=== PATIENT | female | born 1950 | race Caucasian/White ===

== ENCOUNTER → 2016-10-30 | Outpatient (CLI) | payer MEDICARE, OTHER ==
--- NOTE | 2016-10-30 11:28 | MRI ---
EXAM DESCRIPTION: Lumbar Spine w/wo Contrast CLINICAL HISTORY: 66 years, Female, LOW BACK PAIN previous lumbar surgery 10 years ago, injury 3 days prior with low back pain, bilateral leg pain and numbness since COMPARISON: None TECHNIQUE: Multiplanar multi sequence images of the lumbar spine were obtained with and without gadolinium contrast. FINDINGS: There is grade 1 anterolisthesis at L5-S1 with possible bilateral L5-S1 pars defects. Vertebral body height and alignment are otherwise well-maintained. A left-sided laminectomy defect is noted at the L5 level. No bone marrow signal abnormalities are noted. The conus lies posterior to the L1 body, and the cauda equina is unremarkable. There is a large left renal cyst only partially visualized. At L1-2, there is no disc bulging or facet joint degeneration. At L2-3, the intervertebral disc and facet joints are fairly well-maintained. At L3-4, there is mild concentric disc bulging, slightly worse in the right foraminal position. The facet joints are well maintained, and findings result in only slight right-sided neuroforaminal stenosis. No nerve root abutment. At L4-5, there is only minimal concentric disc bulging without facet joint degeneration or stenosis. At L5-S1, there is concentric disc bulge with bilateral facet joint degeneration. An ossified arises from the right L5-S1 facet anteriorly, and findings result in moderately advanced bilateral neuroforaminal and central canal stenosis. Disc material approaches but does not definitely abut or displace the exiting L5 nerve roots. The anterior right-sided facet joint osteophyte likely abuts the right S1 nerve root in the lateral recess. Postcontrast images show no enhancing lesion in the central canal or paraspinal soft tissues. IMPRESSION: Postoperative changes at L5-S1 with grade 1 anterolisthesis at the same level possibly related to underlying pars defects. Disc bulging and facet joint degeneration also at L5-S1 resulting in central canal stenosis, neuroforaminal stenosis and nerve root abutment as detailed above. Less advanced degenerative changes elsewhere in the lumbar spine with only slight right-sided neuroforaminal stenosis at L3-4. Electronically signed by: Kelvin Sneed MD 10/30/2016 11:28 AM CDT
== END | disposition home or self-care (01) ==
LOC: MRI 08:04
DX: M54.5 Low back pain (principal); M48.06 Spinal stenosis, lumbar region

== ENCOUNTER → 2016-12-07 | Outpatient (CLI) | payer MEDICARE, OTHER | END | disposition home or self-care (01) | LOC: LAB.O 12:10 | PROVIDERS: ATTEND Nurse Practitioner Family | DX: R19.7 Diarrhea, unspecified (principal) ==

== ENCOUNTER 2016-12-10 17:16 | Observation (INO) | payer MEDICARE, OTHER ==
--- NOTE | 2016-12-10 17:18 | HP ---
HISTORY OF PRESENT ILLNESS: This 66 year-old white female is placed in the hospital for overnight observation because of worsening symptoms of abdominal pain, especially in the left lower quadrant, rectal bleeding, vomiting and distress. Symptoms have been getting worse for the last 10 days. She was last seen in the clinic this last Saturday with x-ray results having been taken, but has not been told those results. She was started on Cipro, Lomotil, Flagyl and Bentyl at that time over the weekend. Her symptoms seem to have gotten worse though over the weekend. She had some laboratory studies of her stools which showed C-Diff negative, Rotavirus negative, stool guaiac is positive and cultures negative while fecal leukocytes were positive. Her diarrhea is worse with associated urgency with associated nausea and vomiting present. This last Saturday after being seen in the clinic, she went home and had a large amount of bright red rectal fresh bleeding noted at home. She had a colonoscopy and an upper endoscopy about a year ago and apparently had good prep, so the study was good. She has had a bleeding ulcer last noted about 44 years ago when they were . She has not been able to keep much down so is a little dehydrated , so is placed in the hospital for some IV hydration and for close observation, and further delineation and examination of the symptoms to ascertain whether she might have an underlying illness of severity. PAST MEDICAL HISTORY: Generally unremarkable. PAST SURGICAL HISTORY: 1. Colonoscopy. 2. Hysterectomy. 3. Multiple orthopedic procedures. CURRENT MEDICATIONS: Please refer to medicines as listed by the nurses verified for home taking. ALLERGIES: PROTECTIVE ADHESIVE POWDERS. FAMILY HISTORY: Positive for coronary artery disease. SOCIAL HISTORY: She has worked for the [employer] in the past and has never smoked. REVIEW OF SYSTEMS: No significant weight change, except she has lost about 5 pounds in the last 10 days. No fever or chills. HEENT: Unremarkable. LUNGS: No shortness of breath or cough. CARDIOVASCULAR: No chest pains or palpitations. ABDOMEN: Generally tender especially in the left lower quadrant. GENITOURINARY: No dysuria. History of bright red rectal bleeding in the past and diagnosis of hemorrhoids has been noted in the past. EXTREMITIES: Fairly well formed. NEUROLOGIC: No focal neurological weaknesses. PHYSICAL EXAMINATION: VITAL SIGNS: Afebrile, blood pressure 116/64, respiratory 17, pulse oximetry 97 % on room air. Weight 60.4 kilos. GENERAL: The patient is awake and alert. She states that her resting has helped her to feel a little bit better since coming to the hospital. She still is very weak and light-headed, especially upon standing. HEENT: Within normal limits. NECK: Supple. CHEST: Lungs are clear. CARDIOVASCULAR: Tones regular. ABDOMEN: Soft with bowel tones present and somewhat hyperactive. No organomegaly evident. Exam does reveal tenderness more in the left lower quadrant than the right lower quadrant. Stool obtained for studies. NEUROLOGIC: No focal weakness evident. LABORATORY STUDIES: No recent lab studies, so labs are ordered, including creatinine and urinalysis, and repeat C-Diff. ASSESSMENT: 1. Abdominal pain, especially in the left lower quadrant. 2. Rectal hemorrhage quite significant 3 days ago. 3. Repeat vomiting with nausea. 4. History of restless legs. 5. History of a bleeding peptic ulcer 44 years ago. 6. The patient failed outpatient therapy in an attempt to help with her ongoing symptoms. PLAN: The patient will be scheduled for laboratory studies. When the creatinine is known, will consider testing for CT abdomen and pelvis with contrast to rule out diverticulitis or a localized area of thickening wall of the colon or small bowel suggesting an ileocolitis presentation. She will be tried on Flagyl IV and clear liquids. Continue with Align. Await repeat C- Diff and lab studies are pending. Close followup suggested with Dr. Michael and will discuss with him findings in the morning. #[id number] [facility]
[2016-12-10] MEDS ORDERED: ONDANSETRON INJ 4 MG/2 ML VIAL IV PRN (19:49)
[2016-12-10] MEDS ORDERED: methylPREDNISolone SODIUM SUC 40 MG/ML VIAL IV ONE (19:57)
[2016-12-10] MEDS ORDERED: IV SET AND CAP CHANGE INJ INJ SCH (20:00)
[2016-12-10] MEDS ORDERED: HYDROmorphone HCL INJ 2 MG/ML VIAL IV PRN (20:02)
[2016-12-10] MEDS: KCL 20 MEQ/NS 1,000 ML IVS PRN (20:23)
[2016-12-10] MEDS ORDERED: metroNIDAZOLE IV PREMIX 500MG 100 ML IVPB ONE (20:45)
[2016-12-10] MEDS: metroNIDAZOLE IV PREMIX 500MG 500 MG in PREMIX BAG 1 BAG IVPB SCH (21:31)
[2016-12-10] MEDS: BIFIDOBACTERIUM INFANTIS 4 MG CAP PO SCH (21:38)
[2016-12-10] MEDS: PANTOPRAZOLE SODIUM IV 40 MG VIAL IV SCH (21:39)
--- NOTE | 2016-12-10 22:08 | CT ---
EXAM DESCRIPTION: Abdomen/Pelvis w/Contrast CLINICAL HISTORY: 66 years Female abd pain LLQ, rectal bleed, diarrhea COMPARISON: None. TECHNIQUE: Contiguous axial images obtained through the abdomen and pelvis following IV contrast. Reformatted images obtained. This exam was performed according to our department optimization program which includes automated exposure control, adjustment of the mA and/or kv according to patient size and/or use of iterative reconstruction technique. FINDINGS: Minimal atelectatic changes. Mild elevation of the right hemidiaphragm. The liver is mildly enlarged measuring 18.5 cm. Mild fatty replacement in the liver. The spleen and pancreas appear unremarkable. No adrenal masses. Superior pole left renal cyst measuring approximately 8.2 cm. No hydronephrosis. The gallbladder is visualized. No aneurysmal dilatation of the aorta. No bowel obstruction. There is fluid in the colon consistent with a diarrheal state. There is fluid in some nondilated loops of small bowel. The findings could be from gastroenteritis. The appendix appears unremarkable. No free pelvic fluid. There appear to be changes from previous hysterectomy. Degenerative changes most pronounced in the lower lumbar spine. There is mild anterolisthesis at L5-S1. IMPRESSION: There is fluid within loops of small bowel and in the colon. The changes could be from gastroenteritis. Enlarged fatty liver. Large cyst within the superior pole of the left kidney. Electronically signed by: Ayad Vance MD 12/10/2016 10:08 PM CDT
[2016-12-11] MEDS ORDERED: metroNIDAZOLE IV PREMIX 500MG 100 ML IVPB ONE ×3 (03:43→20:12)
[2016-12-11] MEDS: metroNIDAZOLE IV PREMIX 500MG 500 MG in PREMIX BAG 1 BAG IVPB SCH ×3 (03:50→20:23)
[2016-12-11] MEDS: BIFIDOBACTERIUM INFANTIS 4 MG CAP PO SCH ×3 (09:04→20:24)
[2016-12-11] MEDS: KCL 20 MEQ/NS 1,000 ML IVS PRN (10:53)
--- NOTE | 2016-12-11 13:09 | PN ---
DATE: 12/11/16 SUBJECTIVE: The patient is still very weak and having liquidy stools. Less abdominal cramping discomfort noted. Less dizziness upon standing suggesting IV fluids have helped some of her hemodynamics. She is a little hungry today compared to yesterday. No shortness of breath. OBJECTIVE: VITAL SIGNS: Afebrile. Blood pressure 105/61. Pulse 87. Pulse oximetry 98% on room air. Weight 60.4 kg. GENERAL: The patient is awake and alert. She does not appear to be in significant distress, but we will check her tilt vitals to check for hemodynamic stability. ABDOMEN: Less abdominal discomfort is noted, though there is still some mild tenderness upon palpation in the periumbilical region with no masses palpable. LABORATORY: White count has dropped from 5,100 to 3,800 with 84% neutrophils. Chemistries show potassium 4.1, BUN 7, glucose 164. C-reactive protein is 0. Urinalysis showed a trace hematuria and stool occult blood was positive on one occasion yesterday, yet is negative this morning with one more determination later when possible. C. difficile negative on repeat study. CT scan of the abdomen looking for pathology such as diverticulitis or other left lower quadrant discomfort was negative for diverticulitis, but did have significant liquid stool in small and large intestine, suggesting a gastroenteritis etiology. ASSESSMENT: 1. Abdominal pain, showing some improvement and moving from left lower quadrant towards the periumbilical region. 2. History of rectal hemorrhaging approximately 4 days ago. 3. Repeat vomiting with nausea, probably secondary to an underlying gastroenteritis with fluid-filled loops of bowel noted on CT scan with no evidence of specific colitis or diverticulitis. 4. History of restless legs. 5. History of a bleeding peptic ulcer 44 years ago. PLAN: We will request if possible GI evaluation with report of consultation to be sent to Dr. Michael for ongoing continued care. We will anticipate continued outpatient management tomorrow after another few hours of IV hydration and increasing activity to be observed. Slowly advance diet and observe response. Close followup with Dr. Michael and hopefully will be able to see Dr. Phipps tomorrow. Tilt vitals pending. Continue with sequential compression devices. #[id number] [facility]
[2016-12-11] MEDS ORDERED: ACETAMINOPHEN 500 MG TAB PO PRN (13:56)
[2016-12-11] MEDS: SODIUM CHLORIDE 0.9% (FLUSH) 10 ML SYG IV PRN (20:24)
[2016-12-11] MEDS: PANTOPRAZOLE SODIUM IV 40 MG VIAL IV SCH (20:24)
[2016-12-12] MEDS ORDERED: metroNIDAZOLE IV PREMIX 500MG 100 ML IVPB ONE ×2 (03:44→12:30)
[2016-12-12] MEDS: metroNIDAZOLE IV PREMIX 500MG 500 MG in PREMIX BAG 1 BAG IVPB SCH ×2 (03:45→12:31)
[2016-12-12] MEDS: SODIUM CHLORIDE 0.9% (FLUSH) 10 ML SYG IV PRN (03:45)
[2016-12-12] MEDS: BIFIDOBACTERIUM INFANTIS 4 MG CAP PO SCH (09:26)
--- NOTE | 2016-12-12 10:18 | CONS ---
DATE OF CONSULTATION: 12/12/16 HISTORY OF PRESENT ILLNESS: Ms. Miller is a fairly healthy 66-year-old female with no major medical history previously. She developed nausea, vomiting, diarrhea for around a week's duration prior to admission. She claimed that she was given metronidazole and her symptoms got worse and the vomiting actually got worse. In the hospital, she complaining of occasional bright red blood per rectum mixed with some mucus and intractable vomiting. Since admission, she has actually improved. In the last 24 hours, the vomiting had disappeared. She is able to tolerated a regular diet. The bleeding also improved markedly. There is no further rectal bleeding and diarrhea frequency has dropped down to 2 to 3 times a day and stool has started forming. Up to now, the CBC and CMP are all within normal limits. Stool studies are noncontributory without any organism identified. SIGNIFICANT PAST MEDICAL HISTORY: 1. She has a normal screening colonoscopy last year by one of our partners. Reportedly negative. 2. EGD done for acid reflux with no definitive significant finding. 3. Back pain. 4. Arthritis. 5. Hyperlipidemia. PAST SURGICAL HISTORY: There are no clinically significant surgical problems previously CURRENT MEDICATIONS: 1. Dexilant. 2. Cymbalta. 3. Vytorin. 4. Prolia injection. 5. Diclofenac. 6. Gabapentin. SOCIAL HISTORY: She does smoke, nondrinker, retired. REVIEW OF SYSTEMS: Totally noncontributory. The patient claims she is in perfect health except for back problems and prior to admission. PHYSICAL EXAMINATION: VITAL SIGNS: Afebrile. GENERAL: There is no pallor, no icterus. HEENT: Otherwise negative. NECK: No neck masses. No neck vein distention. CHEST: Lungs are essentially clear. HEART: No cardiomegaly, murmur or gallop. ABDOMEN: Soft, obese, nondistended, nontender. No masses. Liver and spleen are not palpable. EXTREMITIES: Noncontributory. NEUROLOGIC: Grossly intact. IMPRESSION: 1. Symptoms most suspicious for viral gastroenteritis. Stool studies all negative. The patient is actually on the way to recovery at the present time. 2. Rectal bleeding, probably from local trauma because of increased stool frequency. 3. Some of the nausea and vomiting could be due to metronidazole usage. 4. In view of negative upper and lower endoscopy within the year, repeat study not indicated. 5. I am going to review the endoscopic records from my office and we will make sure the studies were normal. RECOMMENDATION: At this time, we discontinue all antibiotics, advance diet and discharge within the next 24 hours. #[id number] cc: Nikhil Michael MD MTDD
[2016-12-12 14:17] VITALS: BP 123/68; TEMP 97.8; O2SAT 94
--- NOTE | 2016-12-13 09:48 | DS ---
SUPERVISING PHYSICIAN: Nikhil Michael MD DISCHARGE DIAGNOSIS: 1. Abdominal pain, with improvement with the pain extending over the left lower quadrant towards the periumbilical region. 2. History of rectal hemorrhaging approximately 4 days ago. 3. Repeat vomiting with nausea, most likely secondary to an underlying gastroenteritis with fluid-filled loops of bowel noted on CT scan with no evidence of specific colitis or diverticulitis. 4. History of restless legs. 5. History of a bleeding peptic ulcer 44 years ago. HISTORY OF PRESENT ILLNESS: This is a 66-year-old female patient who was admitted to the hospital because of worsening symptoms of abdominal pain, especially in the left lower quadrant, some rectal bleeding, vomiting, and general distress. Symptoms had been getting worse over the last 10 days. She had been seen in the clinic the previous Saturday with x-ray results taken, but she had not been told the results. She was started on Cipro, Lomotil, Flagyl, and Bentyl. The symptoms seemed to have gotten worse and she also had some laboratory studies that showed a C. difficile negative on the stools as well as negative rotavirus and her stool guaiac was positive, but cultures were negative. Her diarrhea was worse and she had associated urgency as well as associated nausea and vomiting. She had a colonoscopy and upper endoscopy about a year ago and there were no significant findings at that time. She was placed in the hospital for observation and for some IV hydration as well as close observation and also to have Dr. Malcolm, manager ob, see her in the hospital. HOSPITAL COURSE: While in the hospital, she has no further problems with abdominal pain. She was given some Flagyl as well as gentle hydration. Dr. Malcolm saw her and felt that she was symptomatic for a viral gastroenteritis and that the rectal bleeding was probably from local trauma because of her increased stool frequency. He also felt like her nausea and vomiting could be due to her metronidazole use and he felt that at this point she could be followed up with Dr. Michael in the office and if she had further complications or problems she could call his office for a followup. The patient has had no further symptomatology and issues and she will be discharged home. DISCHARGE PLAN: The patient will be discharged home in stable condition. She is to resume her previous diet to be careful to add non-constipating food as well as to keep it rather bland at least over the next few days. She has a followup appointment with Dr. Michael on 12/18/16 at 2:30 PM. At that time, if she has further issues, she can be referred to Dr. Malcolm and he will followup. Her previous home medications can be restarted. DISCHARGE MEDICATIONS: 1. Pramipexole. 2. Hydrocodone. 3. Vytorin. 4. Nexium. 5. Diclofenac. 6. Cymbalta. Dr. Michael is the collaborating physician and available for consultation. #[id number] [facility]
== END 2016-12-12 13:55 | disposition home or self-care (01) ==
LOC: MS 17:16
PROVIDERS: ADMIT Family Medicine; ATTEND Nurse Practitioner Acute Care
DX: K62.5 Hemorrhage of anus and rectum (principal); R10.32 Left lower quadrant pain; R11.2 Nausea with vomiting, unspecified; R19.7 Diarrhea, unspecified; E78.5 Hyperlipidemia, unspecified; G25.81 Restless legs syndrome; M19.90 Unspecified osteoarthritis, unspecified site; K76.0 Fatty (change of) liver, not elsewhere classified; N28.1 Cyst of kidney, acquired; Z79.899 Other long term (current) drug therapy; Z87.11 Personal history of peptic ulcer disease; Z90.710 Acquired absence of both cervix and uterus; Z91.048 Other nonmedicinal substance allergy status
CPT/HCPCS: 36415 ×3; 74177; 80048; 80053; 81001; 82270 ×2; 85025 ×2; 86140; 87449; 94760 ×4; 96361 ×2; 96365; 96366 ×2; 96375; 96376 ×2; G0378; J1030; J3480 ×2; J3490 ×6

== ENCOUNTER → 2017-01-14 | Outpatient (CLI) | payer MEDICARE, OTHER ==
--- NOTE | 2017-01-14 11:37 | US ---
EXAM DESCRIPTION: Renal CLINICAL HISTORY: 67 years Female, RENAL CYST COMPARISON: CT examination December 10, 2016 FINDINGS: Sonographic evaluation of the right kidney demonstrates a normal contour and appearance and size without hydronephrosis or cyst or mass. Right kidney is 9.8 x 4.0 x 4.2 cm. On the left, a large bilobed septated cyst involving the upper pole of the kidney is estimated at 6.9 x 6.5 x 8.3 cm. This corresponds to the CT finding from recent prior examination. Thin septation is identified sonographically and on some of the imaging there is questionable internal debris within the smaller inferior and posterior loculation but this is not confirmed on the CT examination and there is no thickening of the septation or solid component. No further evaluation at this time is recommended. Because of the questionable debris in the smaller loculation a [address] follow-up multiphase without and with contrast enhancement of the left kidney is recommended to confirm stability. I would consider this a Bosniak category 2F cyst. Bladder was not evaluated. There is no hydronephrosis or solid mass involving either kidney noted. IMPRESSION: 1. Septated 8.3 cm upper pole left renal cyst with a thin septation and questionable minimal debris in the smaller inferior posterior loculation. This corresponds to the CT cyst identified in November 2016. Six-month multiphase CT of the left kidney without and with contrast enhancement recommended to confirm stability. 2. Normal-appearing right kidney with no solid mass or hydronephrosis of either kidney noted Electronically signed by: Jeffrey Knowles MD 01/14/2017 11:36 AM CDT
== END | disposition home or self-care (01) ==
LOC: LAB.O 09:45
PROVIDERS: ATTEND Family Medicine
DX: N28.1 Cyst of kidney, acquired (principal)

== ENCOUNTER → 2017-05-30 | Outpatient (CLI) | payer MEDICARE, OTHER ==
--- NOTE | 2017-05-31 10:58 | RAD ---
EXAM DESCRIPTION: Knee,Right Complete CLINICAL HISTORY: 67 years, Female, PAIN IN RIGHT KNEE COMPARISON: June 02, 2015 TECHNIQUE: Three views of the right knee FINDINGS: Sclerosis and degenerative joint space narrowing and minimal marginal osteophyte formation particularly in the medial joint compartment is apparent no significant joint effusion. Milder patellofemoral changes are present with very little degenerative disease involving the lateral joint compartment. No fracture or deformity is noted. IMPRESSION: 1. Modest degenerative changes right knee particularly medial compartment. Electronically signed by: Jeffrey Knowles MD 05/31/2017 10:57 AM CDT
--- NOTE | 2017-05-31 10:59 | RAD ---
EXAM DESCRIPTION: Pelvis CLINICAL HISTORY: 67 years Female, PAIN IN RIGHT HIP COMPARISON: June 02, 2015 FINDINGS: The bony pelvis is intact. No fracture or dislocation is seen. Hypertrophic calcific changes overlie the left greater trochanter and are unchanged from prior study. IMPRESSION: No acute abnormality of the pelvis. Electronically signed by: Jeffrey Knowles MD 05/31/2017 10:58 AM CDT
== END | disposition home or self-care (01) ==
LOC: RAD 09:02
PROVIDERS: ATTEND Orthopaedic Surgery
DX: M25.561 Pain in right knee (principal); M25.551 Pain in right hip

== ENCOUNTER 2017-06-11 05:59 | Inpatient (IN) | payer MEDICARE, OTHER ==
--- NOTE | 2017-06-10 09:03 | HP ---
CHIEF COMPLAINT: Right knee pain. HISTORY OF PRESENT ILLNESS: Ms. Miller is a 67-year-old female with a history of pain in the right knee that has been going on for years. She has had injections before. She has had p.o. treatments, however, all of this has failed to give her relief. Because of her ongoing pain and failure of conservative measures, she has requested operative intervention. After discussing the risks, benefits and alternatives to that, the patient has given informed consent. PAST SURGICAL HISTORY: None. MEDICATIONS: 1. Dexilant. 2. Pramipexole. 3. Diclofenac. 4. Gabapentin. 5. Dicyclomine. ALLERGIES: NO KNOWN DRUG ALLERGIES. CODE STATUS: DNR. IMMUNIZATIONS: Up to date. SOCIAL HISTORY: The patient does not drink, smoke or use any illicit drugs. FAMILY HISTORY: None pertinent to today's complaint. REVIEW OF SYSTEMS: Negative except as indicated in the History of Present Illness. PHYSICAL EXAMINATION: VITAL SIGNS: Blood pressure 163/91. Pulse 90. Height 5'. Weight 125. MENTAL STATUS: The patient is awake, alert, and is able to give a good history and participate in the physical. The patient is oriented to person, place and time. SKIN: Normal tone and turgor. HEENT: Normocephalic, atraumatic. Pupils equal, round and reactive. Mucosal membranes are moist. NECK: Normal range of motion. No thyromegaly, no lymphadenopathy. CHEST: Normal respiratory excursion. CARDIAC: Regular rate and rhythm. No murmurs, rubs or gallops. MUSCULOSKELETAL: The bilateral upper extremities show full range of motion without significant pain. She has intact sensation and they are warm and well perfused. She has no deformity and no crepitus. The left lower extremity shows minor discomfort diffusely about the knee, but no significant limiting pain. Sensation is intact throughout. It is warm and well perfused. She has full extension and full flexion. The right knee is extremely tender to palpation along the medial aspect. She has pain with patellar mobilization and crepitus throughout her range of motion. She has no varus/valgus or anterior/ posterior laxity. IMAGING: X-rays show advanced arthritis. ASSESSMENT: 1. Arthritis. PLAN: The plan at this point is for total knee arthroplasty. We have discussed the risks, benefits, and alternatives to that and the patient has given informed consent. #[id number] [facility]
[~2017-06-11 05:59] MED LIST: LACTATED RINGERS 1,000 ML ONE; SODIUM CHL 0.9% 50ML MIN-BAG+ 50 ML IVPB ONE; SODIUM CHLORIDE 0.9% 100ML 100 ML IVPB ONE; SODIUM CHLORIDE 0.9% 250ML 250 ML ONE; TRANEXAMIC ACID 1,000 MG/10 ML VIAL ONE; VANCOMYCIN HCL INJ 1,000 MG VIAL IVPB ONE; ceFAZolin SODIUM 1 GM VIAL ONE
[2017-06-11] MEDS ORDERED: fentaNYL CITRATE INJ 50 MCG/ML AMP ONE (06:12)
[2017-06-11] MEDS ORDERED: MORPHINE SULFATE *EPIDURAL* 0.5 MG/ML VIAL ONE (06:12)
[2017-06-11] MEDS ORDERED: LACTATED RINGERS 1,000 ML ONE (06:13)
[2017-06-11] MEDS ORDERED: MIDAZOLAM INJ 2 MG/2 ML VIAL ONE (06:13)
[2017-06-11] MEDS ORDERED: ACETAMINOPHEN IV 1000MG 100 ML ONE (06:16)
[2017-06-11] MEDS ORDERED: ceFAZolin SODIUM 1 GM VIAL ONE ×4 (06:19→19:55)
[2017-06-11] MEDS ORDERED: BUPIVACAINE 0.5% W/EPI 30 ML VIAL INJ ONE (06:19)
[2017-06-11] MEDS ORDERED: VANCOMYCIN HCL INJ 1,000 MG VIAL IVPB ONE ×2 (06:19→17:33)
[2017-06-11] MEDS: TRANEXAMIC ACID 1,000 MG/10 ML VIAL ONE ×2 (06:38→11:04)
[2017-06-11] MEDS ORDERED: BENZOCAINE-MENTH LOZ (CEPACOL) 1 EA LOZ MT PRN (06:49)
[2017-06-11] MEDS ORDERED: BISACODYL SUPPOSITORY 10 MG PR PRN (06:49)
[2017-06-11] MEDS ORDERED: NALOXONE HCL INJ 0.4 MG/ML VIAL IV PRN (06:49)
[2017-06-11] MEDS ORDERED: PROMETHAZINE HCL INJ 25 MG in SODIUM CHLORIDE 0.9% 50ML 50 ML IVPB PRN (06:49)
[2017-06-11] MEDS ORDERED: MAGNESIUM HYDROXIDE 30 ML UD PO PRN (06:49)
[2017-06-11] MEDS ORDERED: TEMAZEPAM 15 MG CAP PO PRN (06:49)
[2017-06-11] MEDS ORDERED: PROMETHAZINE HCL INJ 12.5 MG in SODIUM CHLORIDE 0.9% 50ML 50 ML IVPB PRN (06:49)
[2017-06-11] MEDS ORDERED: ALUMINUM & MAGNESIUM HYDROXIDE 30 ML UD PO PRN (06:49)
[2017-06-11] MEDS ORDERED: ACETAMINOPHEN 500 MG TAB PO PRN (06:49)
[2017-06-11] MEDS ORDERED: TRANEXAMIC ACID INJ 1,000 MG in SODIUM CHLORIDE 0.9% 100ML 100 ML IVPB ONE (06:49)
[2017-06-11] MEDS ORDERED: MORPHINE SULFATE INJ 10 MG/ML VIAL IM PRN (06:49)
[2017-06-11] MEDS ORDERED: traMADol HCL 50 MG TAB PO PRN (06:49)
[2017-06-11] MEDS ORDERED: MORPHINE PCA 1 MG/ML 100ML 1 BAG in PREMIX BAG 1 BAG IVPB SCH (07:00)
[2017-06-11] MEDS ORDERED: SODIUM CHLORIDE 0.9% 1000ML 1,000 ML ONE (08:35)
[2017-06-11] MEDS ORDERED: SODIUM CHLORIDE 0.9% 1,000 ML BAG IVPB ONE (08:39)
[2017-06-11] MEDS ORDERED: MORPHINE PCA 1 MG/ML 100 ML BAG IVPB ONE (09:39)
--- NOTE | 2017-06-11 10:03 | RAD ---
EXAM DESCRIPTION: Knee,Right 2 or More Views CLINICAL HISTORY: POST OP IMPRESSION: 2 views of the right knee were acquired postoperatively. There is a knee arthroplasty in anatomic alignment without radiographic evidence of complication. Usual surgical changes are seen within the soft tissues. Electronically signed by: Kalen Phillips MD 06/11/2017 10:02 AM [facility]
[2017-06-11] MEDS ORDERED: DEXAMETHASONE INJ 10 MG/ML VIAL IV ONE (11:00)
[2017-06-11] MEDS ORDERED: PROPOFOL 200 MG/20 ML VIAL IV ONE (11:00)
[2017-06-11] MEDS ORDERED: ONDANSETRON INJ 4 MG/2 ML VIAL IV ONE (11:00)
[2017-06-11] MEDS ORDERED: METOCLOPRAMIDE HCL INJ 10 MG/2 ML VIAL IV ONE (11:00)
[2017-06-11] MEDS ORDERED: LIDOCAINE 1% 10 ML VIAL INJ ONE (11:00)
[2017-06-11] MEDS ORDERED: SODIUM CHL 0.9% 50ML MIN-BAG+ 50 ML IVPB ONE ×2 (15:50→19:53)
[2017-06-11] MEDS ORDERED: CELECOXIB 100 MG CAP ONE (15:51)
[2017-06-11] MEDS: IV SET AND CAP CHANGE INJ INJ SCH (15:57)
[2017-06-11] MEDS: ceFAZolin SODIUM 1 GM in SODIUM CHL 0.9% 50ML MIN-BAG+ 50 ML IVPB SCH ×2 (15:57→23:43)
[2017-06-11] MEDS: DEX 5% W/NACL 0.45% 1000ML 1,000 ML IVS PRN (15:59)
[2017-06-11] MEDS ORDERED: CEFAZOLIN SODIUM 2 GRAMS IV 2 GM in PREMIX BAG 1 BAG IVPB SCH (16:00)
[2017-06-11] MEDS: CELECOXIB 100 MG CAP PO SCH (16:00)
--- NOTE | 2017-06-11 17:28 | CONS ---
DATE OF CONSULTATION: 06/11/17 HISTORY OF PRESENT ILLNESS: This 67 year-old white female was admitted to the hospital earlier today for elective surgical revision and replacement of the right knee after having worsening pain for the last year and a half in the right knee. She has had an old injury in the past at which time the meniscus on the right knee was removed. She has had outpatient treatment courses in Dr. Michael and Dr. Rios's office which failed to improve the condition and she required surgical intervention to assist with symptom control. She tolerated the surgery quite well this morning and is now postoperative and is up to 108 degrees by passive range of motion, and tolerating it quite well with Astramorph having been given prior to surgery. She is now going to be entering into a rehabilitation phase under Physical Therapy and Orthopedic surgical supervision in an effort to get stronger to the point where she will be able to function more fully at home and will be able to return home with followup with Dr. Michael' clinic when stable and safe to do so. PAST MEDICAL HISTORY: 1. The patient has had a significant bout of ulcerative colitis with nausea and significant diarrhea as well as rectal bleeding for a 3 month period from October through December of this , 2016. She has received a colonoscopy as well as upper endoscopy and is being followed by a GI specialist in [place]. At the present time , she is quite stable but is going to need to require significant effort to try to minimize her risk of an exacerbation. PAST SURGICAL HISTORY: 1. Colonoscopy. 2. Hysterectomy. 3. Multiple orthopedic procedures including right meniscus removal. 4. Lumbar spine surgery. 5. Right shoulder surgery. 6. Total right knee surgery. CURRENT MEDICATIONS: Please refer to list of medications listed and verified by the nurse. ALLERGIES: NONE KNOWN. FAMILY HISTORY: Positive for cancer as well as coronary artery disease. SOCIAL HISTORY: She has worked for [employer] in the past and has never smoked. REVIEW OF SYSTEMS: No significant weight change. No fever or chills. HEENT: No hearing or vision disturbances. LUNGS: No significant shortness of breath, cough or hemoptysis. CARDIOVASCULAR: No chest pains or palpitations. ABDOMEN: Generally soft with no significant constipation. No recent bleeding but she has had bleeding in the past with ulcerative colitis. GENITOURINARY: No dysuria. EXTREMITIES: Significant pain especially recently noted in the right knee requiring surgical intervention for symptom relief. NEUROLOGIC: No focal neurological weaknesses evident. PHYSICAL EXAMINATION: VITAL SIGNS: Afebrile, pulse 104, blood pressure 150/71, pulse oximetry 98% on a face tent. Weight 60.15 kilos. GENERAL: The patient is awake, alert and oriented, and communicative and a good historian. HEENT: Within normal limits. NECK: Supple. CHEST: Lungs are clear. HEART: Tones regular. No significant gallop rhythms. ABDOMEN: Soft with fairly good bowel tones. No organomegaly or masses evident. EXTREMITIES: Right knee is in a cooling blanket and is currently undergoing passive range of motion up to 108 degrees seemingly well tolerated. NEUROLOGIC: No focal neurological deficits are noted. There is no drainage or bleeding into the dressing of the right knee postoperatively. LABORATORY: Recent culture was obtained from her nose which apparently was positive for MRSA and she was started on antibiotics preoperatively. DIAGNOSES: 1. Immediate postoperative day zero total right knee arthroplasty performed by Dr. Yifan Rios, orthopedic surgeon. 2. Significant osteoarthritis with degenerative changes in the right knee failing to respond fully to outpatient treatment and requiring surgical intervention to assist with symptom control. 3. Positive Methicillin resistant Staphylococcus aureus nasal culture with the patient being on a decolonization treatment program before surgery and subsequently. 4. History of significant ulcerative colitis with rectal bleeding requiring biopsy and repeat colonoscopy, and close gastrointestinal followup in the future. PLAN: Will continue with rehabilitation under Physical Therapy and Orthopedic surgical supervision. Encouraged to breathe deeply and to actively contract and relax muscles of the lower extremity in an effort to work on prevention of DVT formation. Close followup is necessary. #[id number] [facility]
[2017-06-11] MEDS ORDERED: SODIUM CHLORIDE 0.9% 250ML 250 ML ONE (17:33)
[2017-06-11] MEDS: VANCOMYCIN HCL INJ 1,000 MG in SODIUM CHLORIDE 0.9% 250ML 250 ML IVPB SCH (18:05)
[2017-06-11] MEDS ORDERED: PRAMIPEXOLE 0.25 MG TAB ONE (19:53)
[2017-06-11] MEDS ORDERED: GABAPENTIN 300 MG CAP ONE (19:53)
[2017-06-11] MEDS ORDERED: DOCUSATE CALCIUM 240 MG CAP ONE (19:54)
[2017-06-11] MEDS ORDERED: BIFIDOBACTERIUM INFANTIS 4 MG CAP ONE (19:54)
[2017-06-11] MEDS ORDERED: ENOXAPARIN SODIUM 30 MG/0.3 ML SYG SUBCU ONE (19:54)
[2017-06-11] MEDS: PRAMIPEXOLE 0.25 MG TAB PO SCH (20:41)
[2017-06-11] MEDS: SODIUM CHLORIDE 0.9% (FLUSH) 10 ML SYG IV PRN (20:42)
[2017-06-11] MEDS: GABAPENTIN 300 MG CAP PO SCH (20:42)
[2017-06-11] MEDS: DOCUSATE CALCIUM 240 MG CAP PO SCH (20:42)
[2017-06-11] MEDS: BIFIDOBACTERIUM INFANTIS 4 MG CAP PO SCH (20:42)
[2017-06-11] MEDS: MESALAMINE 0.375 GM PO SCH (21:22)
[2017-06-11] MEDS: ENOXAPARIN SODIUM 30 MG/0.3 ML SYG SUBCU SCH (21:45)
[2017-06-11] MEDS: CYCLOBENZAPRINE HCL 10 MG TAB PO PRN (22:39)
[2017-06-11] MEDS: HYDROcodone 5MG/APAP 325MG 1 EA TAB PO PRN (22:39)
[2017-06-12] MEDS: HYDROcodone 5MG/APAP 325MG 1 EA TAB PO PRN ×3 (02:51→14:13)
[2017-06-12] MEDS ORDERED: PROMETHAZINE HCL INJ 25 MG/ML VIAL ONE (04:30)
[2017-06-12] MEDS ORDERED: SODIUM CHLORIDE 0.9% 50ML 50 ML ONE (04:30)
[2017-06-12] MEDS: MORPHINE SULFATE INJ 10 MG/ML VIAL IV PRN ×2 (05:08→15:10)
[2017-06-12] MEDS: SODIUM CHLORIDE 0.9% (FLUSH) 10 ML SYG IV PRN (05:09)
[2017-06-12] MEDS ORDERED: SODIUM CHLORIDE 0.9% 250ML 250 ML ONE (05:16)
[2017-06-12] MEDS ORDERED: OMEPRAZOLE CAP 20 MG CAP ONE (05:16)
[2017-06-12] MEDS ORDERED: VANCOMYCIN HCL INJ 1,000 MG VIAL IVPB ONE (05:16)
[2017-06-12] MEDS: VANCOMYCIN HCL INJ 1,000 MG in SODIUM CHLORIDE 0.9% 250ML 250 ML IVPB SCH (06:09)
[2017-06-12] MEDS: OMEPRAZOLE CAP 20 MG CAP PO SCH (06:14)
[2017-06-12] MEDS ORDERED: SODIUM CHL 0.9% 50ML MIN-BAG+ 50 ML IVPB ONE (07:25)
[2017-06-12] MEDS ORDERED: MAGNESIUM OXIDE 400 MG TAB ONE (07:25)
[2017-06-12] MEDS ORDERED: ceFAZolin SODIUM 1 GM VIAL ONE (07:26)
--- NOTE | 2017-06-12 08:17 | OP ---
DATE OF PROCEDURE: 06/11/17 PREOPERATIVE DIAGNOSIS: 1. Osteoarthritis of the knee. POSTOPERATIVE DIAGNOSIS: 1. Osteoarthritis of the knee. PROCEDURE: 1. Total knee arthroplasty. SURGEON: Yifan Rios MD. DRESS FINISHER: Wayne Valero CST, SA-C. ANESTHESIA: General. COMPLICATIONS: None. FINDINGS: Severe arthritis of the knee with varus deformity. INDICATION: Ms. Miller has a long history of pain in the knee for which she has had conservative measures, but has failed to gain relief. Because of the ongoing pain in the knee, she has requested operative intervention. After discussing the risks, benefits and alternatives to that, the patient has given informed consent for total knee arthroplasty. PROCEDURE: The patient was brought to the Operating Room and placed in supine position. General anesthesia was induced and the patient's leg was sterilely prepped and draped. Following prepping and draping, the distal femur was exposed and using an intramedullary guide, the distal femoral cut was made. The appropriate sized cutting block was measured, pinned into place, and the anterior, posterior, and chamfer cuts were made. The ACL was transected and the tibia was subluxed. Both the medial and lateral menisci were removed. An intramedullary guide was used to make the proximal tibial cut. The appropriate sized base plate was placed and a trial polyethylene was placed. The trial femur was placed, the knee was reduced, and the knee was taken through a range of motion. The knee was stable in anterior, posterior, varus and valgus stress. The patella tracked anatomically without evidence of subluxation or dislocation. After trialing, the trial components were removed and the bony surfaces were thoroughly irrigated with saline. Following irrigation, the surfaces were dried and the final components were cemented into place. The excess cement was removed and the remaining cement was allowed to cure. The knee was again taken through a range of motion to confirm stability. The wound was then irrigated with saline and closure was performed using PDS to approximate the arthrotomy followed by closure of the subcutaneous tissues with a combination of running and interrupted Monocryl sutures. Sterile dressing was placed. The patient was awoken from anesthesia and taken to Recovery. POSTOPERATIVE INSTRUCTIONS: The patient will be weight-bearing as tolerated on postoperative day 1. COMPONENTS: [employer] Triathlon knee, size 4 femur, size 3 tibia, 9 mm insert. #[id number] [facility]
[2017-06-12] MEDS: ONDANSETRON INJ 4 MG/2 ML VIAL IV PRN ×2 (08:20→15:10)
[2017-06-12] MEDS: MAGNESIUM OXIDE 400 MG TAB PO SCH (08:20)
[2017-06-12] MEDS: ceFAZolin SODIUM 1 GM in SODIUM CHL 0.9% 50ML MIN-BAG+ 50 ML IVPB SCH (08:20)
[2017-06-12] MEDS: CELECOXIB 100 MG CAP PO SCH ×2 (08:20→17:28)
[2017-06-12] MEDS: BIFIDOBACTERIUM INFANTIS 4 MG CAP PO SCH ×2 (08:20→21:45)
[2017-06-12] MEDS: ENOXAPARIN SODIUM 30 MG/0.3 ML SYG SUBCU SCH ×2 (08:45→21:32)
--- NOTE | 2017-06-12 09:20 | PN ---
DATE: 06/12/17 SUBJECTIVE: She is doing okay, but she is having some pain. OBJECTIVE: Afebrile. Vital signs stable. Dressing is clean. There are no signs or symptoms of infection. ASSESSMENT: Status post total knee arthroplasty. PLAN: She will begin weight-bearing as tolerated. I did encourage her to use her EMA[employer] DE[employer]OYMENT SPECIALIST and ask for additional medicine if needed as written in the order. #[id number] [facility]
[2017-06-12] MEDS: MESALAMINE 0.375 GM PO SCH ×4 (09:54→21:32)
[2017-06-12] MEDS: CYCLOBENZAPRINE HCL 10 MG TAB PO PRN ×2 (12:47→21:32)
--- NOTE | 2017-06-12 13:08 | PN ---
DATE: 06/12/17 SUBJECTIVE: The patient is sitting up in the chair and states that especially when the right knee is extended and while dependent, she has increased pain even compared to when she is weight-bearing. She is able to transfer from the bed to the chair with minimal assistance. Generally, the pain is still a significant concern which is day 1 and the Astramorph has pretty well cleared out. Her pain pump is being supplemented by [place] p.o. Her appetite is fair and her diet is progressing. No shortness of breath. OBJECTIVE: LUNGS: Clear. HEART: Regular. ABDOMEN: Soft. EXTREMITIES: No draining at the site of the incision. LABORATORY: Hemoglobin this morning is 10.8. ASSESSMENT: 1. Postoperative day #1 right total knee arthroplasty performed by Dr. Rios, orthopedic surgeon. 2. Significant osteoarthritis with degenerative changes in the right knee failing to respond fully to outpatient treatment and requiring surgical intervention to assist with symptom control. 3. Positive Methicillin resistant Staphylococcus aureus nasal surveillance culture with decolonization and observation to continue. 4. History of significant ulcerative colitis with rectal bleeding requiring biopsy and repeat colonoscopy, currently on special medications to help with remission of the ulcerative colitis with GI clinic followup in the future. PLAN: Continue to advance diet and rehabilitation slowly with observation. Continued emphasis on pain control. Encourage deep breathing and active contraction and relaxation of the lower extremities to assist with DVT prophylaxis. Close followup suggested. #[id number] [facility]
[2017-06-12] MEDS: DEX 5% W/NACL 0.45% 1000ML 1,000 ML IVS PRN (21:31)
[2017-06-12] MEDS: GABAPENTIN 300 MG CAP PO SCH (21:32)
[2017-06-12] MEDS: ZOLPIDEM TARTRATE 5 MG TAB PO PRN (21:32)
[2017-06-12] MEDS: DOCUSATE CALCIUM 240 MG CAP PO SCH (21:32)
[2017-06-12] MEDS: PRAMIPEXOLE 0.25 MG TAB PO SCH (21:33)
[2017-06-13] MEDS: HYDROcodone 5MG/APAP 325MG 1 EA TAB PO PRN ×5 (00:24→20:32)
[2017-06-13] MEDS: OMEPRAZOLE CAP 20 MG CAP PO SCH (06:34)
[2017-06-13] MEDS: CELECOXIB 100 MG CAP PO SCH ×2 (08:15→16:37)
[2017-06-13] MEDS: CYCLOBENZAPRINE HCL 10 MG TAB PO PRN ×2 (08:15→19:22)
[2017-06-13] MEDS: MAGNESIUM OXIDE 400 MG TAB PO SCH (08:55)
[2017-06-13] MEDS: BIFIDOBACTERIUM INFANTIS 4 MG CAP PO SCH ×2 (08:55→20:29)
[2017-06-13] MEDS: MESALAMINE 0.375 GM PO SCH ×3 (08:55→20:29)
[2017-06-13] MEDS: SODIUM CHLORIDE 0.9% (FLUSH) 10 ML SYG IV SCH ×2 (08:57→20:31)
[2017-06-13] MEDS: ENOXAPARIN SODIUM 30 MG/0.3 ML SYG SUBCU SCH ×2 (08:57→21:36)
[2017-06-13] MEDS ORDERED: BISACODYL TAB 5 MG TAB PO PRN (11:47)
[2017-06-13] MEDS: ONDANSETRON INJ 4 MG/2 ML VIAL IV PRN (12:28)
--- NOTE | 2017-06-13 19:12 | PN ---
DATE: 06/13/17 SUBJECTIVE: In many ways she states her pain is still persisting today, though she admits being more active today as well. She is still a little concerned as to her abilities to return home safely and states that she may benefit by a Swing Bed trial of rehabilitation. She does not like liquid Mylanta or Milk of Magnesia. Last bowel movement was before she arrived for surgical. OBJECTIVE: See vitals. LUNGS: Clear. HEART: Tones regular. ABDOMEN: Slightly tender to deep palpation. Bowel tones are slightly diminished. ASSESSMENT: 1. Postoperative day #2 right total knee arthroplasty performed by Dr. Rios, orthopedic surgeon. 2. Significant osteoarthritis with degenerative changes especially in the right knee failing to respond fully to outpatient therapy and requiring surgical intervention to assist with symptom control. 3. History of positive Methicillin resistant Staphylococcus aureus nasal surveillance culture with decolonization and observation to continue. 4. History of significant ulcerative colitis with rectal bleeding requiring biopsy and repeat colonoscopy, currently on special medications to help with remission of the ulcerative colitis with GI clinic followup in the future. PLAN: Will continue with diet and DVT prophylaxis as well as strengthening and condition rehabilitation. The patient is somewhat concerned regarding her abilities to safely return home. A decision may be made tomorrow by talking with the therapist as to whether she would benefit by a few days on orthopedic Swing Bed rehabilitation. Will try a little Dulcolax suppository to see if it will help with the constipation in the morning. #[id number] [facility]
[2017-06-13] MEDS: PRAMIPEXOLE 0.25 MG TAB PO SCH (20:29)
[2017-06-13] MEDS: DOCUSATE CALCIUM 240 MG CAP PO SCH (20:29)
[2017-06-13] MEDS: GABAPENTIN 300 MG CAP PO SCH (20:29)
[2017-06-13] MEDS: ZOLPIDEM TARTRATE 5 MG TAB PO PRN (21:37)
[2017-06-14] MEDS: ACETAMINOPHEN 325 MG TAB PO PRN ×2 (02:13→14:11)
[2017-06-14] MEDS ORDERED: SODIUM CHL 0.9% 50ML MIN-BAG+ 50 ML IVPB ONE ×3 (05:30→19:30)
[2017-06-14] MEDS ORDERED: cefTRIAXone SODIUM 1 GM VIAL ONE ×3 (05:30→19:31)
[2017-06-14] MEDS: cefTRIAXone SODIUM 1 GM in SODIUM CHL 0.9% 50ML MIN-BAG+ 50 ML IVPB SCH ×2 (06:08→17:34)
[2017-06-14] MEDS: OMEPRAZOLE CAP 20 MG CAP PO SCH (06:08)
--- NOTE | 2017-06-14 06:50 | RAD ---
Procedure: XR CHEST 2 VIEWS Exam Date: 06/14/2017 Ordering Provider: AJ DE LEON Clinical Indication: Fever Comparison: 09/15/2011 Findings: Cardiomediastinal silhouette is within normal limits. Focal lung consolidation: None Pleural effusion: None Pneumothorax: None Bones and soft tissues: Nonacute Impression: 1. No acute abnormalities in the chest. Electronically signed by: Javi Ireland MD 06/14/2017 6:49 AM SOFTWARE ENGINEERING SPECIALIST
[2017-06-14] MEDS: HYDROcodone 5MG/APAP 325MG 1 EA TAB PO PRN ×3 (07:02→17:34)
[2017-06-14] MEDS: IV SET AND CAP CHANGE INJ INJ SCH (08:10)
--- NOTE | 2017-06-14 08:13 | PN ---
DATE: 06/13/17 SUBJECTIVE: Ms. Miller is doing well and has no complaints. OBJECTIVE: Afebrile. Vital signs stable. Wound is clean. There are no signs or symptoms of infection. ASSESSMENT: Status post total knee arthroplasty. PLAN: She will continue weight-bearing as tolerated. #[id number] [facility]
--- NOTE | 2017-06-14 08:15 | PN ---
DATE: 06/14/17 SUBJECTIVE: Ms. Miller is doing well. She spiked a low grade fever overnight, but that was only a single time and she is currently afebrile. OBJECTIVE: Afebrile. Vital signs stable. Wound is clean. There are no signs or symptoms of infection. ASSESSMENT: Status post total knee arthroplasty. PLAN: She will continue with physical therapy. We will continue to monitor and possibly discharge this weekend. #[id number] [facility]
[2017-06-14] MEDS: CELECOXIB 100 MG CAP PO SCH ×2 (08:42→17:34)
[2017-06-14] MEDS: BIFIDOBACTERIUM INFANTIS 4 MG CAP PO SCH ×2 (09:13→20:25)
[2017-06-14] MEDS: CYCLOBENZAPRINE HCL 10 MG TAB PO PRN ×2 (09:13→20:25)
[2017-06-14] MEDS: MESALAMINE 0.375 GM PO SCH ×3 (09:14→20:24)
[2017-06-14] MEDS: SODIUM CHLORIDE 0.9% (FLUSH) 10 ML SYG IV SCH ×2 (09:14→20:25)
[2017-06-14] MEDS: ENOXAPARIN SODIUM 30 MG/0.3 ML SYG SUBCU SCH ×2 (09:14→22:00)
[2017-06-14] MEDS: MAGNESIUM OXIDE 400 MG TAB PO SCH (09:17)
[2017-06-14] MEDS: ONDANSETRON INJ 4 MG/2 ML VIAL IV PRN (12:40)
[2017-06-14] MEDS ORDERED: IBUPROFEN 400 MG TAB ONE (17:25)
--- NOTE | 2017-06-14 19:37 | PN ---
DATE: 06/14/17 SUPERVISING PHYSICIAN: Nikhil Michael M.D. SUBJECTIVE: The patient is resting in bed just having finished physical therapy. She has had good pain control. She did run a mild fever last night, but has not had one since this morning. She has had no nausea or vomiting and she has no abdominal pains. OBJECTIVE: VITAL SIGNS: T max 102.7, pulse 106, blood pressure 118/68, respirations 18, satting 95% on room air. I's and O's show a negative balance. She has not yet had a bowel movement. Weight is 60.1 kg. CHEST: Clear to auscultation bilaterally, just slightly diminished toward the bases but no rhonchi, wheezing or rales are noted. HEART: Regular rate and rhythm. ABDOMEN : Soft but non-tender with positive bowel sounds. EXTREMITIES: No clubbing, cyanosis or edema. Right knee has a postoperative dressing in place that shows to be clean and dry. There is no erythema. No signs of infection. Pulses distally were strong. NEUROLOGIC: She is alert and oriented times three. RADIOLOGY: Chest x-ray this morning per radiology interpretation showed no acute abnormalities in the chest. LABORATORY: Hemoglobin was 9.1, hematocrit 27.2, platelet count was within normal limits at 6,000. Chemistries showed a mild hyponatremia at 132, potassium at 3.4, BUN 8, creatinine 0.8, glucose 115. Liver functions showed to be within normal limits. Calcium was 7.5 but albumin was 2.7. MICROBIOLOGY: Blood cultures showed negative at current date. ASSESSMENT: 1. Postoperative day 3 right total knee arthroplasty performed by Dr. Yifan Rios, orthopedic surgeon. 2. Significant osteoarthritis with degenerative changes of the right knee failing to respond to outpatient treatment therapy and requiring surgical intervention for symptom control. 3. Mild electrolyte imbalance with hypokalemia and hyponatremia. 4. Febrile illness status post total right knee felt to be secondary to underlying atelectasis. No obvious etiology of infection with the patient having been started on parenteral antibiotic to include Rocephin. 5. History of significant ulcerative colitis with rectal bleeding requiring a biopsy and a repeat colonoscopy current on special medications to help with remission of the ulcerative colitis and gastrointestinal clinical followup with no obvious acute changes. PLAN: Will plan to monitor the patient as she continues with her physical therapy. She will be encouraged to continue with aggressive pulmonary toiletry to prevent any atelectasis and pneumonia, and further fevers. Will continue with parenteral antibiotics for at least an additional 24 hours and wait for blood cultures to be completed out for at least 24 to 48 hours. Given that she has a history of ulcerative colitis and had some rectal bleeding in the past and as she is on Lovenox at admission and started on Xarelto, will hold her Celebrex to prevent any complications such as bleeding. Will plan to repeat a BNP in the morning and reevaluate electrolytes. If she does continue to show a mild hyponatremia or hypokalemia, certainly will work to replace those as needed. Will anticipate hopefully being able to discharge to Swing Bed or home this coming Saturday depending on how well she does clinically. Until then, will continue to monitor and treat appropriately. #[id number] and [id number] [facility]
[2017-06-14] MEDS: DOCUSATE CALCIUM 240 MG CAP PO SCH (20:24)
[2017-06-14] MEDS: PRAMIPEXOLE 0.25 MG TAB PO SCH (20:24)
[2017-06-14] MEDS: GABAPENTIN 300 MG CAP PO SCH (20:25)
[2017-06-14] MEDS ORDERED: BISACODYL SUPPOSITORY 10 MG PR ONE (21:00)
[2017-06-14] MEDS ORDERED: MAGNESIUM HYDROXIDE 30 ML UD PO ONE (21:00)
[2017-06-14] MEDS: ZOLPIDEM TARTRATE 5 MG TAB PO PRN (22:34)
[2017-06-15] MEDS: HYDROcodone 5MG/APAP 325MG 1 EA TAB PO PRN ×4 (00:35→18:29)
[2017-06-15] MEDS: cefTRIAXone SODIUM 1 GM in SODIUM CHL 0.9% 50ML MIN-BAG+ 50 ML IVPB SCH ×2 (05:48→16:52)
[2017-06-15] MEDS: OMEPRAZOLE CAP 20 MG CAP PO SCH (06:26)
[2017-06-15] MEDS: CYCLOBENZAPRINE HCL 10 MG TAB PO PRN ×2 (08:16→21:02)
[2017-06-15] MEDS: BIFIDOBACTERIUM INFANTIS 4 MG CAP PO SCH ×2 (08:37→21:00)
[2017-06-15] MEDS: MAGNESIUM OXIDE 400 MG TAB PO SCH (08:37)
[2017-06-15] MEDS: ENOXAPARIN SODIUM 30 MG/0.3 ML SYG SUBCU SCH ×2 (08:37→21:02)
[2017-06-15] MEDS: MESALAMINE 0.375 GM PO SCH ×3 (09:00→21:00)
[2017-06-15] MEDS: SODIUM CHLORIDE 0.9% (FLUSH) 10 ML SYG IV SCH ×2 (09:01→21:01)
--- NOTE | 2017-06-15 09:55 | PCM.CORE ---
Physician DVT/VTE - Nurse DVT Assessment & Total Each Risk Factor Represents 5 Points: Elective Arthtroplasty Each Risk Factor Represents 2 Points: Age 60-74, Major Surgery >45 minutes Each Risk Factor Represents 1 Point: Medical PT at Bed Rest Each Risk Factor is 1 Point: Obesity (BMI >25) DVT Assessment Score: 11 - 5 or more Very High Risk Treatments: Early Ambulation *, Sequential Compression Device Pharmacological: Enoxaparin 30mg SQ BID
[2017-06-15] MEDS ORDERED: SODIUM CHL 0.9% 50ML MIN-BAG+ 50 ML IVPB ONE (16:44)
[2017-06-15] MEDS ORDERED: cefTRIAXone SODIUM 1 GM VIAL ONE (16:45)
[2017-06-15] MEDS: ACETAMINOPHEN 325 MG TAB PO PRN (18:29)
[2017-06-15] MEDS: PRAMIPEXOLE 0.25 MG TAB PO SCH (21:00)
[2017-06-15] MEDS: GABAPENTIN 300 MG CAP PO SCH (21:01)
[2017-06-15] MEDS: DOCUSATE CALCIUM 240 MG CAP PO SCH (21:12)
--- NOTE | 2017-06-15 22:15 | PN ---
DATE: 06/15/17 SUPERVISING PHYSICIAN: Nikhil Michael M.D. SUBJECTIVE: The patient has just run a very low-grade fever that has been present for 2 days. She has been utilizing her CPM and participating well with physical therapy. OBJECTIVE: VITAL SIGNS: T max is 100.2, pulse 99, blood pressure 105/57, respirations 16, satting 94% on room air. I's and O's show a positive balance but not completed measured due to the patient's Martinez being removed. Weight is 60.1 kg. CHEST: Lungs were clear to auscultation. HEART: Regular rate and rhythm. ABDOMEN: Soft, non-tender. Positive bowel sounds. EXTREMITIES: Right knee has a dressing in place that is clean and dry. Knee is without any obvious infections but mildly erythematous. No obvious changes in regards to swelling. Distally pulses are strong. Capillary refill is brisk. NEUROLOGIC: She is alert and oriented times three. LABORATORY: Sodium today is improved up to 134, potassium 3.6, BUN 11, creatinine 0.59, calcium 7.3. MICROBIOLOGY: Blood cultures remain negative at 24 hours. There are no radiographic studies for review. ASSESSMENT: 1. Postoperative day 4 total right knee arthroplasty having been performed by Dr. Yifan Rios, orthopedic surgeon. 2. Significant osteoarthritis with degenerative changes of the right knee failing to respond to outpatient treatment plan with therapy requiring surgical intervention for symptom control. 3. Mild electrolyte imbalance to include hypokalemia which has resolved and continued mild hyponatremia. 4. Febrile illness with no other underlying signs of infection more likely related to mild atelectasis and inflammatory response postoperatively. 5. History of significant ulcerative colitis with bleeding in the past requiring a biopsy and a repeat colonoscopy currently on special medications to help with remission of the ulcerative colitis and gastrointestinal clinical followup with no obvious acute changes. PLAN: Will continue to follow the patient with anticipation of discharging tomorrow to Swing Bed if the patient remains afebrile for at least another 24 hours. She will be encouraged to continue with deep breathing exercises. I did stop her Celebrex while she is on Lovenox to prevent any unexpected bleeding as well as while she takes Xarelto. Will hopefully plan to discharge again tomorrow to Swing Bed. Until then, continue to monitor and treat appropriately. #[id number] [facility]
[2017-06-16] MEDS ORDERED: SODIUM CHL 0.9% 50ML MIN-BAG+ 50 ML IVPB ONE ×3 (04:58→19:58)
[2017-06-16] MEDS ORDERED: cefTRIAXone SODIUM 1 GM VIAL ONE ×3 (04:58→19:58)
[2017-06-16] MEDS: cefTRIAXone SODIUM 1 GM in SODIUM CHL 0.9% 50ML MIN-BAG+ 50 ML IVPB SCH ×2 (06:06→17:25)
[2017-06-16] MEDS: OMEPRAZOLE CAP 20 MG CAP PO SCH (06:31)
[2017-06-16] MEDS: HYDROcodone 5MG/APAP 325MG 1 EA TAB PO PRN ×4 (06:49→19:26)
[2017-06-16] MEDS: MESALAMINE 0.375 GM PO SCH ×3 (09:42→21:15)
[2017-06-16] MEDS: BIFIDOBACTERIUM INFANTIS 4 MG CAP PO SCH ×2 (09:42→21:14)
[2017-06-16] MEDS: MAGNESIUM OXIDE 400 MG TAB PO SCH (09:42)
[2017-06-16] MEDS: CYCLOBENZAPRINE HCL 10 MG TAB PO PRN (09:42)
[2017-06-16] MEDS: ENOXAPARIN SODIUM 30 MG/0.3 ML SYG SUBCU SCH ×2 (09:43→21:13)
[2017-06-16] MEDS: SODIUM CHLORIDE 0.9% (FLUSH) 10 ML SYG IV SCH ×2 (09:43→21:14)
[2017-06-16] MEDS: NON-FORMULARY MEDICATION 1 EA MIS (Dexlansoprazole [Dexilant] 60 MG) PO SCH (12:53)
--- NOTE | 2017-06-16 18:34 | PN ---
DATE: 06/16/17 SUPERVISING PHYSICIAN: Nikhil Michael M.D. SUBJECTIVE: The patient continues to run a fever this morning. She has had some diarrhea but no actual nausea, vomiting or any abdominal pain. She has not had much of an appetite but it is associated with the fever. OBJECTIVE: VITAL SIGNS: T max 101.8, pulse 90, blood pressure 102/56, respirations 16, satting 93% on room air. I's and O's: She has had several bowel movements, not diarrhea in consistency. CHEST: Lungs remain clear to auscultation. HEART: Regular rate and rhythm. Right leg incision site remains without any significant redness. There are no signs of infection. She does have some swelling in the entire leg compared to the left but it is showing some improvement with CAROL hose. Capillary refill is brisk with distal pulses strong. NEUROLOGIC: She remains alert and oriented times three. LABORATORY: White count remains within normal limits at 4,900, hemoglobin and hematocrit have dropped postoperative initially on 06/12/17 was down to 8.4 and 24.6, platelet count is at 307,000. Differential does show to be within normal limits. Chemistries continue to show just a mild hyponatremia at 134. Other electrolytes are within normal limits. BUN 10, creatinine 0.6, calcium 8.0. Liver functions show to be within normal limits. MICROBIOLOGY: Blood cultures remain negative at 48 hours. ASSESSMENT: 1. Postoperative day 5 total right knee arthroplasty having been performed by Dr. Yifan Rios, orthopedic surgeon. 2. Significant osteoarthritis with degenerative changes of the right knee failing to respond to outpatient treatment plan with therapy requiring surgical intervention for symptom control. 3. Febrile illness with no obvious etiology of infection with surgical site remaining clean and healthy with the patient having just a small amount of diarrhea with the fever felt to be more of an inflammatory response with blood cultures remaining negative at 48 hours. 4. Mild electrolyte imbalance, persistent with a mild hyponatremia. 5. History of significant ulcerative colitis with bleeding in the past requiring a biopsy and a repeat colonoscopy currently on special medications to help remission of the ulcerative colitis and needing gastrointestinal clinical followup with no obvious acute exacerbations. 6. Diarrhea with stool workup pending with the patient not reporting any obvious blood or any abdominal pain felt to be secondary to previous administration of stool softeners and lack of oral intake. PLAN: Anticipate discharging today to Swing Bed, however given that the patient continues to run a fever and has had some diarrhea, and given her past history of ulcerative colitis, will keep her on Acute Care for an additional 24 hours to further monitor her blood cultures as well as do some stool studies. She remains on Rocephin, however given that she has not had any blood cultures show positive and there has been no identification of infectious etiology, after 72 hours tomorrow hopefully we can discontinue the antibiotic therapy and anticipate discharging to Swing Bed. I have encouraged her to bring the patient food from outside the hospital that she enjoys to increase her oral intake and nutritional status. Will continue to monitor her closely and anticipate hopefully discharging to Swing Bed tomorrow. Until then, will monitor and treat appropriately. #[id number] [facility]
[2017-06-16] MEDS: PRAMIPEXOLE 0.25 MG TAB PO SCH (21:13)
[2017-06-16] MEDS: GABAPENTIN 300 MG CAP PO SCH (21:13)
[2017-06-16] MEDS: DOCUSATE CALCIUM 240 MG CAP PO SCH (21:14)
[2017-06-17] MEDS: HYDROcodone 5MG/APAP 325MG 1 EA TAB PO PRN ×3 (00:39→14:15)
[2017-06-17] MEDS: cefTRIAXone SODIUM 1 GM in SODIUM CHL 0.9% 50ML MIN-BAG+ 50 ML IVPB SCH (05:10)
[2017-06-17] MEDS: ACETAMINOPHEN 325 MG TAB PO PRN (05:14)
[2017-06-17] MEDS: IV SET AND CAP CHANGE INJ INJ SCH (06:41)
--- NOTE | 2017-06-17 08:19 | PN ---
DATE: 06/17/17 SUBJECTIVE: Ms. Miller is doing really well today. Her pain is well controlled. OBJECTIVE: Afebrile. Vital signs stable. Wound is clean. There are no signs or symptoms of infection. ASSESSMENT: Status post total knee arthroplasty. PLAN: We are going to continue with physical therapy. At this point, she does have some unilateral edema which does not appear to be greater than expected, however, it is slightly painful in the posterior aspect of the knee in the popliteal fossa. Because of that, I am going to get an ultrasound. #[id number] [facility]
[2017-06-17] MEDS: NON-FORMULARY MEDICATION 1 EA MIS (Dexlansoprazole [Dexilant] 60 MG) PO SCH (09:08)
[2017-06-17] MEDS: BIFIDOBACTERIUM INFANTIS 4 MG CAP PO SCH ×2 (09:08→21:19)
[2017-06-17] MEDS: MAGNESIUM OXIDE 400 MG TAB PO SCH (09:08)
[2017-06-17] MEDS: ENOXAPARIN SODIUM 30 MG/0.3 ML SYG SUBCU SCH ×2 (09:08→21:19)
[2017-06-17] MEDS: MESALAMINE 0.375 GM PO SCH ×3 (09:08→21:17)
[2017-06-17] MEDS: CYCLOBENZAPRINE HCL 10 MG TAB PO PRN ×2 (09:08→17:19)
[2017-06-17] MEDS: SODIUM CHLORIDE 0.9% (FLUSH) 10 ML SYG IV SCH ×2 (09:09→21:18)
--- NOTE | 2017-06-17 13:38 | US ---
EXAM DESCRIPTION: Venous,Lower Extremity RT CLINICAL HISTORY: possible DVT? COMPARISON: None Available. TECHNIQUE: Right lower extremity venous grayscale, spectral, and color Doppler sonographic images. FINDINGS: There is no DVT identified. There is normal color flow observed with good flow augmentation. All deep veins compress normally. IMPRESSION: Negative for DVT Electronically signed by: Kalen Phillips MD 06/17/2017 1:36 PM [employer]
--- NOTE | 2017-06-17 18:54 | PN ---
DATE: 06/17/17 SUBJECTIVE: The patient is sitting up in the chair and is able to ambulate fairly well on her postoperative total knee replacement joint on the sixth day. She is very weak and it is of note that blood count earlier today is very low. Fever has not been present since 2 nights ago. Diarrhea is a little better, though still somewhat liquidy and no blood was evident. OBJECTIVE: Temperature at 2:00 was 99.9, blood pressure 117/65, pulse oximetry 98%. Generally the patient is awake and alert. She states that in many ways she is feeling better now though still weakened probably significantly contributed to by the anemia state. LUNGS: Generally clear. HEART: Tones regular. ABDOMEN: Soft with no significant tenderness or organomegaly noted. LABORATORY: Hemoglobin has dropped from postoperative 10.8 to an 8.3 earlier today. Slight elevation of the platelet count also evident possibly suggesting some GI bleeding, none of which has been found clinically. Sodium 133. Osmolality is down to 266. She does admit to drinking 3 liters a day and is encouraged to decrease this to only 1 liter of water while other liquids can be served with the tray. Potassium 3.9. Stool guaiac is negative. Stool tests for fecal leukocytes are negative. Clostridium Difficile toxin is negative and blood cultures are negative. Because of some swelling in the right lower extremity after surgery, DVT exam with ultrasound Doppler of the lower extremity for venous study is performed and shows no evidence of DVTs. ASSESSMENT: 1. Postoperative day #6 total right knee arthroplasty having been performed by Dr. Yifan Rios. 2. Significant osteoarthritis with degenerative changes of the right knee failing to respond to outpatient treatment with therapy requiring surgical intervention for symptom control required. 3. Recent history of febrile illness with no evidence of site of the infection and currently being afebrile for the last couple of days. 4. Significant anemia with hemoglobin dropping down to 8.3 today with repeat tomorrow to evaluate whether she will benefit for her rehab potential with a couple of units of red blood cells. 5. Mild hyponatremia possibly related to polydipsia and mild decrease in the osmolality. 6. History of significant ulcerative colitis with bleeding in the past requiring biopsy and repeat colonoscopy currently on medications to help with remission of the ulcerative colitis with further gastrointestinal clinic followup. 7. Diarrhea with stool workup failing to show fecal leukocytes or Clostridium Difficile or blood in the stools. PLAN: Will recheck hemoglobin in the morning. The patient specifically requests no infusion of red blood cell products unless indicated. Repeat evaluation in the morning will determine whether it is going closer to 8 grams of hemoglobin or higher up towards 9. Rehabilitation will be continued. If she requires 2 units of packed red cells in the morning then these can be performed over 3 or 4 hours apiece until tomorrow afternoon at which time the patient can have her blood count rechecked for its equilibration results and then consider transfer for further rehab to Swing Bed status from Med/Surg. Close continued followup of the fever. Encourage deep breathing to assist with prevention of atelectasis. Close followup and reevaluation in the morning with a repeat hemoglobin. #[id number] [facility]
[2017-06-17] MEDS: PRAMIPEXOLE 0.25 MG TAB PO SCH (21:18)
[2017-06-17] MEDS: GABAPENTIN 300 MG CAP PO SCH (21:18)
[2017-06-17] MEDS: DOCUSATE CALCIUM 240 MG CAP PO SCH (21:19)
[2017-06-18] MEDS: HYDROcodone 5MG/APAP 325MG 1 EA TAB PO PRN ×3 (08:03→20:44)
[2017-06-18] MEDS: BIFIDOBACTERIUM INFANTIS 4 MG CAP PO SCH ×2 (08:09→20:44)
[2017-06-18] MEDS: SODIUM CHLORIDE 0.9% (FLUSH) 10 ML SYG IV SCH ×2 (08:10→20:44)
[2017-06-18] MEDS: MAGNESIUM OXIDE 400 MG TAB PO SCH (08:10)
[2017-06-18] MEDS: MESALAMINE 0.375 GM PO SCH ×3 (08:11→20:44)
[2017-06-18] MEDS: NON-FORMULARY MEDICATION 1 EA MIS (Dexlansoprazole [Dexilant] 60 MG) PO SCH (08:11)
[2017-06-18] MEDS: ENOXAPARIN SODIUM 30 MG/0.3 ML SYG SUBCU SCH ×2 (09:29→21:09)
[2017-06-18] MEDS: CYCLOBENZAPRINE HCL 10 MG TAB PO PRN (09:31)
--- NOTE | 2017-06-18 20:05 | PN ---
DATE: 06/18/17 SUPERVISING PHYSICIAN: Jeffrey Calderon M.D. SUBJECTIVE: The patient is lying in bed watching television. She has been walking in the yen several times today. She has no complaints of shortness of breath, nausea, vomiting, diarrhea, constipation or chest pain. We discussed her discharge and admission to Swing Bed and she will be ready for Swing Bed admission tomorrow. OBJECTIVE: VITAL SIGNS: She is afebrile, heart rate 102, blood pressure 137/74 , respiratory rate 20, O2 sat is 97% on room air. RESPIRATORY: Essentially clear to auscultation bilaterally. CARDIAC: Regular rate and rhythm. ABDOMEN: Soft, nondistended, non-tender. Bowel sounds are positive. EXTREMITIES: She has a dressing to her right knee that is dry and intact. She has compression hose on. Bilateral pedal pulses are palpable at +2. NEUROLOGIC: She is awake, alert and oriented times three. LABORATORY: White count is stable at 6.3 with hemoglobin 8.8, hematocrit 26.3 up from 8.3 and 24.4 yesterday. Stool for occult blood was negative. Preliminary blood culture showed no growth after 4 days. Preliminary stool culture shows no bacterial growth at 24 hours. All other labs and films have been reviewed via the EMR. ASSESSMENT: 1. Postoperative day #7 total right knee arthroplasty performed by Dr. Yifan Rios, orthopedic surgeon. 2. Significant osteoarthritis with degenerative changes of the right knee failing to respond to outpatient treatment with therapy requiring surgical intervention for symptom control required. 3. Recent history of febrile illness with no evidence of site of the infection and currently being afebrile for the last couple of days. 4. Significant anemia with hemoglobin stabilizing. It is up to 8.8 today and will repeat H&H tomorrow. 5. Mild hyponatremia possibly related to polydipsia and mild decrease in the osmolality. 6. History of significant ulcerative colitis with bleeding in the past requiring biopsy and repeat colonoscopy currently on medications to help with remission of the ulcerative colitis with further gastrointestinal clinic followup. 7. Diarrhea with stool workup failing to show fecal leukocytes or Clostridium Difficile or blood in the stools. PLAN: We will continue present supportive care. I will check her hemoglobin in the morning. If her hemoglobin remains stable, she will be discharged tomorrow and readmitted for Swing Bed admission for strengthening and conditioning per Physical Therapy. Otherwise we will continue to monitor the patient closely and follow as needed. Dr. Calderon is the collaborating physician available for consultation. [facility][id number] [facility]
[2017-06-18] MEDS: PRAMIPEXOLE 0.25 MG TAB PO SCH (20:44)
[2017-06-18] MEDS: GABAPENTIN 300 MG CAP PO SCH (20:44)
[2017-06-18] MEDS: DOCUSATE CALCIUM 240 MG CAP PO SCH (20:44)
[2017-06-19] MEDS: HYDROcodone 5MG/APAP 325MG 1 EA TAB PO PRN ×2 (04:30→09:19)
[2017-06-19] MEDS: CYCLOBENZAPRINE HCL 10 MG TAB PO PRN (04:30)
[2017-06-19 07:15] VITALS: BP 111/66; TEMP 97.8; O2SAT 100
[2017-06-19] MEDS: BIFIDOBACTERIUM INFANTIS 4 MG CAP PO SCH (08:06)
[2017-06-19] MEDS: MAGNESIUM OXIDE 400 MG TAB PO SCH (08:06)
[2017-06-19] MEDS: MESALAMINE 0.375 GM PO SCH (08:07)
[2017-06-19] MEDS: NON-FORMULARY MEDICATION 1 EA MIS (Dexlansoprazole [Dexilant] 60 MG) PO SCH (08:07)
[2017-06-19] MEDS: SODIUM CHLORIDE 0.9% (FLUSH) 10 ML SYG IV SCH (08:07)
[2017-06-19] MEDS: ENOXAPARIN SODIUM 30 MG/0.3 ML SYG SUBCU SCH (08:08)
--- NOTE | 2017-06-19 09:44 | DS ---
SUPERVISING PHYSICIAN: Jeffrey Calderon MD DISCHARGE DIAGNOSIS: 1. Postoperative day #8 total right knee arthroplasty performed by Dr. Yifan iRos, orthopedic surgeon. 2. Significant osteoarthritis with degenerative changes of the right knee failing to respond to outpatient treatment with therapy requiring surgical intervention for symptom control required. 3. Recent history of febrile illness with no evidence of site of the infection and currently being afebrile for the last couple of days. 4. Significant anemia with hemoglobin stabilizing. It is up to 8.8 today and will repeat H&H tomorrow. 5. Mild hyponatremia possibly related to polydipsia and mild decrease in the osmolality. 6. History of significant ulcerative colitis with bleeding in the past requiring biopsy and repeat colonoscopy currently on medications to help with remission of the ulcerative colitis with further gastrointestinal clinic followup. 7. Diarrhea with stool workup failing to show fecal leukocytes or Clostridium Difficile or blood in the stools. HISTORY OF PRESENT ILLNESS: This is a 67-year-old female patient who was initially admitted to the hospital for elective surgical revision and replacement of the right knee after having worsening pain for the last 1-1/2 years in that knee. She had an old injury in the past at which time the meniscus on the right knee was removed. She also had outpatient treatment courses in Dr. Michael' and Dr. Rios's offices and she failed to improve. She then required surgical intervention to assist with symptom control. HOSPITAL COURSE: She tolerated the surgery quite well. She did have some postoperative fever that was most likely related to her atelectasis. Aggressive pulmonary toilet was encouraged. She also had several bouts of diarrhea, most likely due to her history of ulcerative colitis. Stool studies were obtained and her stool cultures showed no growth. Her stool leukocytosis were negative. C. difficile was negative and her blood cultures showed no growth after 5 days. She has been afebrile for several days. She has had no further problems with diarrhea and she is to be discharged from Acute Care admission and readmitted to Swing Bed for physical therapy for strengthening and conditioning. DISCHARGE PLAN: The patient will be discharged today from the Acute Care setting and readmitted to Swing Bed. She will continue her strengthening and conditioning as per physical therapy. I will restart her home medications and hopefully she can be discharged in the next few days once she has been determined safe to go home. DISCHARGE MEDICATIONS: 1. Gabapentin. 2. Diclofenac. 3. Dexilant. 4. Probiotic. 5. Mesalamine. 6. Mirapex. 7. Align. 8. Cyclobenzaprine. 9. Xarelto. Dr. Calderon is the collaborating physician and available for consultation. #[id number] [facility]
== END 2017-06-19 09:20 | disposition swing bed (61) | DRG 470 ==
LOC: AMB 05:59 → MS 10:50
PROVIDERS: ADMIT Orthopaedic Surgery; ATTEND Emergency Medicine
PROC: 0SRC0J9 Replacement of Right Knee Joint with Synthetic Substitute, Cemented, Open Approach (ICD-10-PCS; principal; 2017-06-11 07:00)
DX: M17.11 Unilateral primary osteoarthritis, right knee (principal); K51.90 Ulcerative colitis, unspecified, without complications; E87.1 Hypo-osmolality and hyponatremia; J98.11 Atelectasis; D64.9 Anemia, unspecified; R19.7 Diarrhea, unspecified; Z66 Do not resuscitate; E87.6 Hypokalemia; Z86.14 Personal history of Methicillin resistant Staphylococcus aureus infection; Z79.899 Other long term (current) drug therapy; Z87.828 Personal history of other (healed) physical injury and trauma

== ENCOUNTER 2017-06-19 09:15 | Inpatient (IN) | payer MEDICARE, OTHER ==
--- NOTE | 2017-06-19 09:25 | HP ---
SUPERVISING PHYSICIAN: Jeffrey Calderon M.D. HISTORY OF PRESENT ILLNESS: Ms. Miller is a 67 year-old female patient who was initially admitted to the hospital for elective surgical revision and replacement of the right knee after having worsening pain over the last 1-1/2 years in the same knee. She had no injury in the past at which time the meniscus of the right knee was removed. She has also had outpatient treatment course in Dr. Michael' office and Dr. Rios's office but has failed to show improvement. She then required surgical intervention to assist with symptom control. The patient was admitted on 06/11/17 and had elective replacement of her knee. She tolerated surgery well. Postoperatively she did have some fevers that were felt to be related to atelectasis. She had aggressive pulmonary hygiene and that was continued through admission. She also had some episodes of diarrhea which was felt to be more likely due to a history of ulcerative colitis. Stool studies were obtained and stool cultures showed no growth. Stool leukocytes were negative. Clostridium Difficile was negative. Blood cultures had remained negative after 5 days. She had shown to be afebrile for multiple days and had no additional clinical issues with diarrhea, and was felt to be significantly stable enough to be discharged from Acute Care for readmission to Swing Bed for ongoing physical therapy, strengthening and reconditioning. She now is to be admitted to Swing Bed on 06/19/17. PAST MEDICAL HISTORY: 1. Ulcerative colitis. PAST SURGICAL HISTORY: 1. Above noted right knee total arthroplasty performed on 06/11/[address] Yifan Rios. 2. Colonoscopy. 3. Hysterectomy. 4. Previous orthopedic procedures including right knee meniscus removal. 5. Lumbar spine surgery. 6. Right shoulder surgery. CURRENT MEDICATIONS: Please refer to list of medications updated by the nurse in the electronic medical records. ALLERGIES: NO KNOWN ALLERGIES. FAMILY HISTORY: Positive for cancer as well as coronary artery disease. SOCIAL HISTORY: She has worked for the [employer] in the past but has never smoked. She consumes alcohol on a rare basis. REVIEW OF SYSTEMS: Noncontributory except as noted above for ongoing orthopedic issues and as previously noted in History of Present Illness. PHYSICAL EXAMINATION: VITAL SIGNS: Temperature 97.8, pulse 86, blood pressure 111/66, respirations 20 , satting 100% on room air. Admission weight 60.1 kg. GENERAL: The patient is well nourished and well hydrated. Appears to be in no acute distress. HEENT: Tympanic membranes are clear bilaterally. Oropharynx is pink and moist without any lesions. NECK: Supple, non-tender with full range of motion. No jugular venous distention. CHEST: Clear to auscultation bilaterally without any rhonchi, wheezing or rales. CARDIOVASCULAR: Regular rate and rhythm without appreciable murmurs, gallops, or rubs. ABDOMEN: Soft, non-tender. Positive bowel sounds. EXTREMITIES: Right knee has a postoperative dressing in place which is clean and dry. There is minimal swelling. Distally pulses are strong with capillary refill brisk. NEUROLOGIC: She is alert and oriented times three with facial features being symmetrical. Extraocular movements are within normal limits. No nystagmus noted. Cranial nerves II-XII are grossly intact as tested. LABORATORY: No laboratory studies are pending at time of admission to Swing Bed nor any radiographic study is pending. ASSESSMENT: 1. Postoperative day #8 for total right knee arthroplasty having been performed by Dr. Yifan Rios, orthopedic surgeon. 2. Significant arthritis and degenerative changes of the right knee having failed to respond to conservative outpatient treatment measures requiring surgical intervention for symptom control. 3. Recent history of febrile illness on acute care with no evidence of site infections with the patient being afebrile for well over 48 to 72 hours prior to discharge felt to be secondary to underlying atelectasis and inflammatory response. 4. Significant anemia with hemoglobin that has stabilized with final hemoglobin at discharge of 8.7 and 25.4 hematocrit. 5. Mild hyponatremia on Acute Care possibly related to polydipsia with some mild decrease in osmolality showing improvement after encouraging fluid restrictions. 6. History of significant ulcerative colitis in the past requiring biopsy and repeat colonoscopy currently on medications to help with remission of ulcerative colitis with further gastrointestinal clinical followup. 7. Diarrhea with stool workup failing to show leukocytes or Clostridium Difficile or blood in the stools. PLAN: The patient will be discharged today on 06/19/17 from Acute Care and admitted to Swing Bed. Will continue with strengthening and reconditioning as per Physical Therapy. Her home medications will be started as well as Xarelto as per protocol. Will anticipate length of stay to be at least 3 to 7 days until she has met her physical therapy goals. Will continue to monitor and treat appropriately. #[id number] [facility]
[2017-06-19] MEDS ORDERED: TEMAZEPAM 15 MG CAP PO PRN (11:44)
[2017-06-19] MEDS ORDERED: ACETAMINOPHEN 500 MG TAB PO PRN (11:44)
[2017-06-19] MEDS ORDERED: SODIUM PHOS/BIPHOS ENEMA ADULT 133 ML BTTL PR PRN (11:44)
[2017-06-19] MEDS ORDERED: MAGNESIUM HYDROXIDE 30 ML UD PO PRN (11:44)
[2017-06-19] MEDS: HYDROcodone 5MG/APAP 325MG 1 EA TAB PO PRN ×2 (13:34→20:07)
[2017-06-19] MEDS: MESALAMINE 0.375 GM PO SCH ×2 (15:34→20:08)
--- NOTE | 2017-06-19 19:22 | PCM.CORE ---
Physician DVT/VTE - Prophylaxis Currently: Patient already on anticoagulation therapy - xarleto - Nurse DVT Assessment & Total Each Risk Factor Represents 5 Points: Elective Arthtroplasty, Hip,Pelvis,leg Fx <1month Each Risk Factor Represents 2 Points: Age 60-74 Each Risk Factor is 1 Point: Hx of Inflammatory Bowel Disease, Obesity (BMI >25) DVT Assessment Score: 14 - 5 or more Very High Risk Treatments: Early Ambulation *, Sequential Compression Device
[2017-06-19] MEDS ORDERED: GABAPENTIN 300 MG CAP ONE (19:30)
[2017-06-19] MEDS ORDERED: BIFIDOBACTERIUM INFANTIS 4 MG CAP ONE (19:30)
[2017-06-19] MEDS ORDERED: PRAMIPEXOLE 0.25 MG TAB ONE (19:30)
[2017-06-19] MEDS: GABAPENTIN 300 MG CAP PO SCH (20:07)
[2017-06-19] MEDS: BIFIDOBACTERIUM INFANTIS 4 MG CAP PO SCH (20:07)
[2017-06-19] MEDS: PRAMIPEXOLE 0.25 MG TAB PO SCH (20:07)
[2017-06-19] MEDS: CYCLOBENZAPRINE HCL 10 MG TAB PO PRN (21:37)
[2017-06-20] MEDS: HYDROcodone 5MG/APAP 325MG 1 EA TAB PO PRN ×5 (01:17→23:56)
[2017-06-20] MEDS ORDERED: RIVAROXABAN 10 MG TAB ONE (07:12)
[2017-06-20] MEDS ORDERED: DOCUSATE SODIUM 100 MG CAP ONE (07:12)
[2017-06-20] MEDS: BIFIDOBACTERIUM INFANTIS 4 MG CAP PO SCH ×2 (08:33→20:55)
[2017-06-20] MEDS: RIVAROXABAN 10 MG TAB PO SCH (08:34)
[2017-06-20] MEDS: MESALAMINE 0.375 GM PO SCH ×3 (08:34→20:56)
[2017-06-20] MEDS: DOCUSATE SODIUM 100 MG CAP PO SCH (08:34)
[2017-06-20] MEDS: NON-FORMULARY MEDICATION 1 EA MIS (Dexlansoprazole [Dexilant] 60 MG) PO SCH (08:36)
[2017-06-20] MEDS: CYCLOBENZAPRINE HCL 10 MG TAB PO PRN ×2 (10:17→20:56)
[2017-06-20] MEDS: GABAPENTIN 300 MG CAP PO SCH (20:55)
[2017-06-20] MEDS: PRAMIPEXOLE 0.25 MG TAB PO SCH (20:55)
[2017-06-21] MEDS: HYDROcodone 5MG/APAP 325MG 1 EA TAB PO PRN ×3 (06:45→17:57)
[2017-06-21] MEDS: MESALAMINE 0.375 GM PO SCH ×3 (10:04→20:45)
[2017-06-21] MEDS: RIVAROXABAN 10 MG TAB PO SCH (10:04)
[2017-06-21] MEDS: BIFIDOBACTERIUM INFANTIS 4 MG CAP PO SCH ×2 (10:04→20:45)
[2017-06-21] MEDS: DOCUSATE SODIUM 100 MG CAP PO SCH ×2 (10:04)
[2017-06-21] MEDS: NON-FORMULARY MEDICATION 1 EA MIS (Dexlansoprazole [Dexilant] 60 MG) PO SCH (10:04)
[2017-06-21] MEDS: CYCLOBENZAPRINE HCL 10 MG TAB PO PRN ×2 (10:37→20:46)
[2017-06-21] MEDS: PRAMIPEXOLE 0.25 MG TAB PO SCH (20:45)
[2017-06-21] MEDS: GABAPENTIN 300 MG CAP PO SCH (20:45)
[2017-06-22] MEDS: HYDROcodone 5MG/APAP 325MG 1 EA TAB PO PRN ×3 (06:23→18:09)
[2017-06-22] MEDS: BIFIDOBACTERIUM INFANTIS 4 MG CAP PO SCH ×2 (10:00→20:30)
[2017-06-22] MEDS: NON-FORMULARY MEDICATION 1 EA MIS (Dexlansoprazole [Dexilant] 60 MG) PO SCH (10:00)
[2017-06-22] MEDS: RIVAROXABAN 10 MG TAB PO SCH (10:00)
[2017-06-22] MEDS: MESALAMINE 0.375 GM PO SCH ×3 (10:00→20:30)
[2017-06-22] MEDS: DOCUSATE SODIUM 100 MG CAP PO SCH (10:02)
[2017-06-22] MEDS: CYCLOBENZAPRINE HCL 10 MG TAB PO PRN ×2 (10:05→20:36)
[2017-06-22] MEDS: PRAMIPEXOLE 0.25 MG TAB PO SCH (20:30)
[2017-06-22] MEDS: GABAPENTIN 300 MG CAP PO SCH (20:30)
[2017-06-23] MEDS: HYDROcodone 5MG/APAP 325MG 1 EA TAB PO PRN ×5 (02:30→23:30)
[2017-06-23] MEDS: CYCLOBENZAPRINE HCL 10 MG TAB PO PRN ×2 (08:01→20:36)
[2017-06-23] MEDS: NON-FORMULARY MEDICATION 1 EA MIS (Dexlansoprazole [Dexilant] 60 MG) PO SCH (09:12)
[2017-06-23] MEDS: MESALAMINE 0.375 GM PO SCH ×3 (09:12→20:36)
[2017-06-23] MEDS: RIVAROXABAN 10 MG TAB PO SCH (09:12)
[2017-06-23] MEDS: BIFIDOBACTERIUM INFANTIS 4 MG CAP PO SCH ×2 (09:12→20:35)
[2017-06-23] MEDS: DOCUSATE SODIUM 100 MG CAP PO SCH (09:12)
[2017-06-23] MEDS: GABAPENTIN 300 MG CAP PO SCH (20:35)
[2017-06-23] MEDS: PRAMIPEXOLE 0.25 MG TAB PO SCH (20:36)
[2017-06-24] MEDS: HYDROcodone 5MG/APAP 325MG 1 EA TAB PO PRN (07:26)
[2017-06-24 07:30] VITALS: BP 122/65; TEMP 97.8; O2SAT 100
--- NOTE | 2017-06-24 07:54 | PN ---
DATE: 06/24/17 SUBJECTIVE: Ms. Miller is doing really well. She has been here with us now going on close to 2 weeks and she feels as though she is ready to go home. OBJECTIVE: Afebrile. Vital signs stable. Wound is clean. There are no signs or symptoms of infection. ASSESSMENT: Status post total knee arthroplasty. PLAN: At this point, the plan is for her to be discharged today. We will have her set up for outpatient physical therapy. She will followup with us in about 2 weeks. She has been instructed to return immediately should any change in her condition occur. [facility][id number] [facility]
[2017-06-24] MEDS: MESALAMINE 0.375 GM PO SCH (09:16)
[2017-06-24] MEDS: NON-FORMULARY MEDICATION 1 EA MIS (Dexlansoprazole [Dexilant] 60 MG) PO SCH (09:16)
[2017-06-24] MEDS: BIFIDOBACTERIUM INFANTIS 4 MG CAP PO SCH (09:17)
[2017-06-24] MEDS: RIVAROXABAN 10 MG TAB PO SCH (09:17)
[2017-06-24] MEDS: DOCUSATE SODIUM 100 MG CAP PO SCH (09:17)
[2017-06-24] MEDS: CYCLOBENZAPRINE HCL 10 MG TAB PO PRN (12:28)
[2017-06-24] MEDS ORDERED: HYDROcodone 5MG/APAP 325MG 1 EA TAB PO ONE (12:45)
--- NOTE | 2017-07-07 13:40 | DS ---
SUPERVISING PHYSICIAN: Nikhil Michael M.D. DISCHARGE DIAGNOSIS: 1. Postoperative total right knee arthroplasty performed by Dr. Yifan Rios, orthopedic surgeon. 2. Significant arthritis with degenerative changes of the right knee having failed to respond to outpatient conservative measures and treatment requiring surgical intervention for symptom control. HISTORY OF PRESENT ILLNESS: Ms. Miller is a 67 year-old female patient who was initially admitted to the hospital for elective surgical revision and replacement of the right knee after having worsening pain over the last 1-1/2 years in the same knee. She had no injury in the past at which time the meniscus of the right knee was removed. She has also had outpatient treatment course in Dr. Michael' office and Dr. Rios's office but has failed to show improvement. She then required surgical intervention to assist with symptom control. The patient was admitted on 06/11/17 and had elective replacement of her knee. She tolerated surgery well. She progressed through her Acute Care but continued to require ongoing physical therapy, therefore she was admitted to Swing Bed for physical therapy, strengthening and reconditioning on 06/19/17. LABORATORY: There were no laboratory or radiographic studies completed while in Swing Bed. HOSPITAL COURSE: Ms. Miller was admitted to Swing Bed on 06/19/17 for ongoing physical therapy and reconditioning. She progressed well and had met her goals set by Physical Therapy and herself, therefore she is now ready for discharge to home with continued outpatient treatment. PLAN: Ms. Miller was discharged on 06/24/17 to have close clinical followup with Dr. Rios as scheduled. She was to continue with her rehab as per health and comfort, and return to the hospital should she have any concerning symptoms or call Dr. Rios's office. At discharge, prescriptions included: 1. Flexeril 10 mg every 8 hours as needed. All other medications prior to admission were continued. Condition on discharge was stable. Diet was advance as tolerated. Activity was increase as tolerated per physical therapy. Discharge condition was stable and improved. [id number] [facility]
== END 2017-06-24 13:53 | disposition home health service (06) | DRG 560 ==
LOC: MS 09:15
PROVIDERS: ADMIT Nurse Practitioner Family; ATTEND Nurse Practitioner Family
DX: Z47.1 Aftercare following joint replacement surgery (principal); K51.90 Ulcerative colitis, unspecified, without complications; Z96.651 Presence of right artificial knee joint; D64.9 Anemia, unspecified

== ENCOUNTER → 2017-10-30 | Outpatient (CLI) | payer MEDICARE, OTHER ==
--- NOTE | 2017-10-30 10:11 | RAD ---
EXAM DESCRIPTION: Knee,Right Complete CLINICAL HISTORY: 67 years, Female, KNEE PAIN COMPARISON: June 11, 2017 TECHNIQUE: Four views of the right knee FINDINGS: A right total knee prosthesis is noted in place. Femoral and tibial metallic components are well applied to the underlying bony matrix with satisfactory alignment. A patellar articular surface has not been placed. Postsurgical changes seen on previous study have resolved. No periprosthetic fractures or deformity noted IMPRESSION: 1. Satisfactory right total knee replacement. Electronically signed by: Jeffrey Knowles MD 10/30/2017 10:09 AM CDT
--- NOTE | 2017-10-30 10:12 | RAD ---
EXAM DESCRIPTION: Pelvis CLINICAL HISTORY: 67 years Female, HIP PAIN COMPARISON: May 30, 2017 FINDINGS: The pelvis is mildly osteopenic with the bony pelvic ring is intact with normal-appearing SI joints. Mild degenerative changes involving each hip is noted without dislocation or fracture or bone on bone appearance. The pubic rami and ischial rami are intact. IMPRESSION: No acute abnormality of the pelvis. Electronically signed by: Jeffrey Knowles MD 10/30/2017 10:11 AM CDT
== END | disposition home or self-care (01) ==
LOC: RAD 07:53
PROVIDERS: ATTEND Orthopaedic Surgery
DX: M25.561 Pain in right knee (principal); M25.551 Pain in right hip

== ENCOUNTER → 2018-02-17 | Outpatient (CLI) | payer MEDICARE, OTHER ==
--- NOTE | 2018-02-17 09:46 | US ---
EXAM DESCRIPTION: Carotid Duplex: ULTRASOUND. CLINICAL HISTORY: OCCLUSION AND STENOSIS OF BILATERAL CAROTID ARTERIES COMPARISON: CT abdomen and pelvis today. TECHNIQUE: Transcutaneous scanning utilizing chatterjee-scale and Doppler modes to evaluate the bilateral carotid systems and vertebral arteries. Percentage of diameter of stenosis or no stenosis recorded will be based upon NASCET criteria. FINDINGS: Peak systolic/end diastolic (CM-Sec) CCA Right 102/27 Left 100/32. ICA Right proximal 90/30, distal 103/32. Left proximal 81/27, mid 100/36. Vertebral Right 61/19 Left 47/15. ECA (PS Only) Right 53 left 73. ICA/CCA peak systolic ratio: Right 1.0 Left 1.0 ICA/CCA end diastolic ratio: Right 1.2 Left 1.1 Vertebral arteries: antegrade flow. Comments Comments: Atherosclerotic calcification, spectral broadening, and color turbulent flow right CCA bifurcation and proximal right ICA. Similar findings in the contralateral left vessels. Area stenosis in the left proximal ICA is 27% and diameter stenosis is 36%. IMPRESSION: 1. Doppler evaluation of the bilateral carotid systems and vertebral arteries shows no hemodynamically significant stenoses. 2. No significant amount of plaque seen in the carotid arteries bilaterally. Bilateral vertebral arteries showed antegrade-cephalad flow. Electronically signed by: Wayne Kang MD 02/17/2018 9:45 AM CDT
--- NOTE | 2018-02-17 12:12 | CT ---
EXAM DESCRIPTION: Abdomen/Pelvis w/Contrast: Computed Tomography. CLINICAL HISTORY: ACQUIRED RENAL CYST. Right kidney. Bilateral screening mammography and bilateral carotid ultrasound duplex examinations today. COMPARISON: CT abdomen and pelvis with IV contrast 12/10/2016. TECHNIQUE: Spiral-axial scans at 5.0 mm intervals through the abdomen and pelvis, after nonionic IV contrast without oral contrast. Coronal and sagittal 2.0 mm reconstructions. Delayed scans, liver through the pelvis. Axial-spiral 5mm. No adverse reactions. Total Exam DLP: 782.09 mGy-cm. This exam was performed according to our departmental dose-optimization program which includes automated exposure control, adjustment of the mA and/or kV according to patient size and/or use of iterative reconstruction technique; to reduce radiation dose to as low as reasonably achievable (ALARA). FINDINGS: Lung bases and pleura: Minimal bilateral posterior basilar dependent atelectasis. Liver, Stomach, Spleen, Adrenal Glands: Long axis right hepatic lobe 18.2 cm. Other organs are unremarkable. Pancreas, Gallbladder, Ducts: Gallbladder visualized. Ducts and pancreas negative. Kidneys and Ureters: 8.1 x 6.7 x 3.0 cm cyst upper pole left kidney with partial septation posteriorly mass effect on the splenic artery, pancreas, small bowel, adrenal gland spleen and stomach. No enhancement. Stable size and appearance since the prior study. Right kidney and bilateral ureters remain unremarkable.. Mesentery: Negative. Aorta: Atherosclerotic calcifications. Small Bowel: Negative. Terminal Ileum/Cecum: Unremarkable. Normal caliber of the appendix. Residual radiodense fecal matter, fluid, or new appendicolith since the prior study. Normal caliber. Normal density of the surrounding fat. Colon: Minimal redundancy of the sigmoid colon but no obvious diverticula and no complications. Minimal redundancy of the splenic flexure. Increased amount of fecal matter proximal. Pelvic Organs: Negative. Spine and Bony Pelvis: L5-S1 grade 1 anterolisthesis. Spondylolysis left L5 pars interarticularis. Bulging disc may be contributing to canal and bilateral foraminal stenosis Abdominal Wall/Back Soft Tissues: Negative. IMPRESSION: 1. Left renal cyst stable in size and appearance and mass effect on adjacent organs. 2. New appendicolith, versus fecal matter in the appendix since the prior study, but no signs of inflammation. 3. Grade 1 anterolisthesis L5-S1 with disc space loss bulging disc and possible canal and bilateral foraminal stenosis, with left L5 pars spondylolysis. Stable since the prior study. This is interpreted to be also stable compared to MRI scan 10/30/2016. Electronically signed by: Wayne Kang MD 02/17/2018 12:11 PM CDT
--- NOTE | 2018-02-18 11:18 | MAM ---
EXAM DESCRIPTION: 3D Screening BILATERAL : Digital Mammography. CLINICAL HISTORY: 68 years Female SCREEN . No complaints. Remote family history of breast and ovarian cancer. Childbirth. Postmenopausal. Has taken HRT 5 or more years ago. Cyst aspiration biopsy right breast.. COMPARISON: Digital screening bilateral study 09/02/2013. No prior reports available. TECHNIQUE: Bilateral CC and MLO projection full-field images, 3-D tomosynthesis digital mammographic technique. CAD not utilized. FINDINGS: The breast parenchymal density pattern is: Scattered areas of fibroglandular density. No skin thickening or nipple retraction. Bilateral solitary microcalcifications. New solitary calcification in the mid right breast since the prior study. No new focal, stellate mass or density, focal asymmetry , and no suspicious microcalcifications bilaterally. Otherwise stable mammograms compared to prior study, taking into account differences in mammographic technique. IMPRESSION: BI-RADS CATEGORY: 2 - BENIGN FINDINGS. FOLLOW UP: Routine digital bilateral screening, one year interval from January 2018. Written communication explaining the IMPRESSION and follow-up, will be mailed to the patient and referring health care provider. According to the [employer], yearly mammograms are recommended starting at age 40 and continuing as long as a woman is in good health. Any breast change noted on a breast self-exam should be reported promptly to the patient's healthcare provider. Breast MRI is recommended for women with an approximately 20-25% or greater lifetime risk of breast cancer, including women with a strong family history of breast or ovarian cancer and women who have been treated for Hodgkin's disease. A negative mammographic report should not delay tissue diagnosis in patients with significant clinical history or physical findings. Extremely dense breast tissue limits the sensitivity of digital mammography. Electronically signed by: Wayne Kang MD 02/18/2018 11:17 AM CDT
== END ==
LOC: CT 08:30
PROVIDERS: ATTEND Family Medicine
DX: Z12.31 Encounter for screening mammogram for malignant neoplasm of breast (principal); I65.23 Occlusion and stenosis of bilateral carotid arteries; N28.1 Cyst of kidney, acquired; M43.17 Spondylolisthesis, lumbosacral region

== ENCOUNTER → 2018-05-22 | Outpatient (CLI) | payer MEDICARE, OTHER ==
--- NOTE | 2018-05-22 09:03 | RAD ---
EXAM DESCRIPTION: Shoulder,Left 2 or More Views CLINICAL HISTORY: SHOULDER PAIN COMPARISON: None Available. TECHNIQUE: Two views of the left shoulder. FINDINGS: There is adequate internal and external rotation. Normal alignment on transcatheter Y view. Degenerative changes in the lower C-spine. No dislocation on transaxillary view. There is no fracture or dislocation. There are no significant glenohumeral degenerative changes observed. AC joint appears mildly degenerated and narrowed with mild inferior spurring. No focal bone lesion. IMPRESSION: Negative for fracture or dislocation. Electronically signed by: Alexandro Hoffman MD 05/22/2018 9:01 AM CDT
== END ==
LOC: RAD 07:53
PROVIDERS: ATTEND Orthopaedic Surgery
DX: M25.512 Pain in left shoulder (principal)

== ENCOUNTER → 2018-07-25 | Outpatient (CLI) | payer MEDICARE, OTHER ==
--- NOTE | 2018-07-25 16:47 | MRI ---
EXAM DESCRIPTION: MRI left shoulder CLINICAL HISTORY: Rotator cuff tear. Shoulder pain COMPARISON: None. TECHNIQUE: Multiplanar, multisequence MR images of the left shoulder FINDINGS: Full-thickness supraspinatus tendon tear superimposed on diffuse tendinosis. Anterior tendon intact. Full-thickness tear along the mid to posterior tendon with fraying of both articular and bursal surfaces, full-thickness tear with mild tendon retraction. Subacromial subdeltoid fluid. Muscle volume is normal with grade 1 fatty infiltration Infraspinatus tendinosis with moderate grade interstitial partial tear. Fluid signal intensity fissuring along the anterior to mid tendon from the myotendinous junction to the insertion with a bilobed ganglion along the anterior myotendinous junction measuring about 1 x 3 x 1 cm. Infraspinatus muscle volume is normal with grade 1 fatty infiltration. Teres minor tendon and muscle are normal. Subscapularis insertional tendinosis. Narrow coracohumeral interval of 6 mm predisposing to chronic coracoid impingement of the subscapularis. Normal muscle volume with grade 1 fatty streaking Long head biceps tendon normal in the bicipital groove. Short segment impingement tendinosis as the tendon enters the joint.. Labral anchor intact. No labral tear No high-grade glenohumeral chondrosis or chronic osteochondral lesion Mild acromioclavicular osteoarthritis. Mild anterior lateral downsloping of the acromion IMPRESSION: Full-thickness supraspinatus tendon tear of the mid to posterior tendon with diffuse fraying of the tendon over about 1.8 cm mediolateral. Partial retraction to the lateral humeral level Moderate grade interstitial partial tear of the anterior to mid infraspinatus Subscapularis and short segment biceps tendinosis Electronically signed by: Jeffrey Schwartz MD 07/25/2018 4:46 PM [facility] [email or web address]]
== END ==
LOC: MRI 11:00
PROVIDERS: ATTEND Orthopaedic Surgery
DX: M75.102 Unspecified rotator cuff tear or rupture of left shoulder, not specified as traumatic (principal)

== ENCOUNTER 2018-09-20 12:13 | Emergency (ER) | payer MEDICARE, OTHER ==
[2018-09-20] MEDS ORDERED: cefTRIAXone SODIUM 1 GM VIAL IM ONE (13:30)
[2018-09-20] MEDS ORDERED: AZITHROMYCIN 250 MG TAB PO ONE (13:30)
[2018-09-20] MEDS ORDERED: ACETAMINOPHEN-CAFF-BUTALBITAL 1 EA TAB PO ONE (13:35)
--- NOTE | 2018-09-20 13:38 | ED.PDOC ---
History of Present Illness - General Chief Complaint: Fever Stated Complaint: fever, preop Time Seen by Provider: 09/20/18 12:33 Source: patient Exam Limitations: no limitations - History of Present Illness Initial Comments: The patient is a 68-year-old female presenting to the emergency room secondary to cough congestion and sore throat essentially for the last 3 days. She received a steroid shot from her primary care doctor 2-1/2 days ago. Symptoms have not improved. She is due for a surgery on her left shoulder next Saturday. She was informed that if she continued to have symptoms or was worsening that she needed to be seen. No evidence of any hypoxia. No evidence of any distress. Clinically this looks most like a viral syndrome. Posterior oropharynx shows mild erythema and the nares are red with clear rhinorrhea. lung barrios are clear at this time. She reports having significant sinus drainage and sore throat mostly related to that. She does have a mild headache. Normal oral intake. Timing/Duration: unsure Severity: moderate Improving Factors: nothing Worsening Factors: nothing Associated Symptoms: cough, fever/chills, malaise Allergies/Adverse Reactions: Allergies Protective Adhesive Powder Allergy (Verified 05/24/15 14:49) Home Medications: Ambulatory Orders Dexlansoprazole [Dexilant] 60 mg PO DAILY 06/10/17 Gabapentin [Neurontin] 900 mg PO BEDTIME 06/10/17 Mesalamine [Apriso] 0.375 gm PO TID 06/10/17 Pramipexole Dihydrochloride [Mirapex] 1.5 mg PO BEDTIME 06/10/17 Bifidobacterium Infantis [Align] 4 mg PO BID cap 06/19/17 Cyclobenzaprine HCl [Flexeril] 10 mg PO Q8H PRN #15 tab 06/24/17 Mvmgbkjjbutnb-Duho-Eyuvgpntzy [Fioricet] 1 ea PO Q8H PRN #21 tab 09/20/18 Azithromycin 500 mg PO DAILY #5 tab 09/20/18 Duloxetine HCl 60 mg PO DAILY 09/20/18 Review of Systems - Review of Systems Constitutional: States: fever - low-grade, malaise EENTM: States: nose congestion, throat pain Respiratory: States: cough Cardiology: States: no symptoms reported Gastrointestinal/Abdominal: States: no symptoms reported Genitourinary: States: no symptoms reported Musculoskeletal: States: see HPI Skin: States: no symptoms reported Neurological: States: headache Endocrine: States: no symptoms reported All other Systems: No Change from Baseline Past Medical History (General) - Patient Medical History Hx Seizures: No Hx Stroke: No Hx Dementia: No Hx Asthma: No Hx of COPD: No Hx Cardiac Disorders: No Hx Congestive Heart Failure: No Hx Pacemaker: No Hx Hypertension: No Hx Thyroid Disease: No Hx Diabetes: No Hx Gastroesophageal Reflux: No Hx Renal Disease: No Hx of HIV: No Hx MRSA: No MRSA Source:: NOSE Surgical History: other - Vaccination History Hx Influenza Vaccination: Yes Hx Pneumococcal Vaccination: No - Social History Hx Tobacco Use: No Hx Alcohol Use: No Hx Substance Use: No Hx Physical Abuse: No Hx Emotional Abuse: No Family Medical History - Family History Mother Living Status: Cause of : Suicide Hx Family Asthma: No Hx Family Congestive Heart Failure: No Hx Family Hypertension: No Hx Family Stroke: No Hx Cardiac Disease: No Hx Family Diabetes: No Hx Family Cancer: No Hx Family;Other: Mother has Hx Migraines. Physical Exam - Physical Exam General Appearance: Alert, Comfortable, No apparent distress Eye Exam: bilateral normal Ears, Nose, Throat: hearing grossly normal, nasal congestion, pharyngeal erythema Neck: full range of motion, supple Respiratory: lungs clear, normal breath sounds, no respiratory distress, no accessory muscle use Cardiovascular/Chest: normal peripheral pulses, regular rate, rhythm, no edema Peripheral Pulses: radial,right: 2+, radial,left: 2+, dorsalis pedis,right: 2+, dorsalis pedis,left: 2+ Gastrointestinal/Abdominal: non tender, soft Rectal Exam: deferred Back Exam: no CVA tenderness, no vertebral tenderness Extremity: non-tender, no pedal edema, normal capillary refill Neurologic: 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 She has tested negative for influenza. She is scheduled to have a left shoulder surgery done with Dr. zavala on Saturday. Given the fact that this may still be the plan we are going to go ahead and cover for the possibility of an atypical bacterial source with azithromycin. She needs to keep herself well hydrated. She'll be written for some Fioricet for the headache. She has already received a steroid shot from her primary care doctor. Follow-up with orthopedics on Saturday. ER warnings were given. Departure - Departure Clinical Impression: Viral upper respiratory infection Disposition: Discharge to Home or Self Care Condition: Fair Departure Forms: ED Discharge - Pt. Copy, Patient Portal Self Enrollment Instructions: Cough, Runny Nose, and the Common Cold (DC), Viral Upper Respiratory Infection, Adult (DC) Diet: regular diet Activity: increase activity as tolerated Referrals: Nikhil Michael MD [Primary Care Provider] - 1-5 Days Prescriptions: Damxoxlxyhgxz-Cefb-Ruiuzwqpil [Fioricet] 1 ea PO Q8H PRN #21 tab PRN Reason: Pain Azithromycin 500 mg PO DAILY #5 tab Home Medications: Ambulatory Orders Dexlansoprazole [Dexilant] 60 mg PO DAILY 06/10/17 Gabapentin [Neurontin] 900 mg PO BEDTIME 06/10/17 Mesalamine [Apriso] 0.375 gm PO TID 06/10/17 Pramipexole Dihydrochloride [Mirapex] 1.5 mg PO BEDTIME 06/10/17 Bifidobacterium Infantis [Align] 4 mg PO BID cap 06/19/17 Cyclobenzaprine HCl [Flexeril] 10 mg PO Q8H PRN #15 tab 06/24/17 Klsqazerzwqhv-Eqvo-Pbrwlaotyv [Fioricet] 1 ea PO Q8H PRN #21 tab 09/20/18 Azithromycin 500 mg PO DAILY #5 tab 09/20/18 Duloxetine HCl 60 mg PO DAILY 09/20/18 Additional Instructions: the patient is a 68-year-old female presenting with what is most likely a viral upper respiratory tract infection. She has tested negative for influenza. She is scheduled to have a left shoulder surgery done with Dr. zavala on Saturday. Given the fact that this may still be the plan we are going to go ahead and cover for the possibility of an atypical bacterial source with azithromycin. She needs to keep herself well hydrated. She'll be written for some Fioricet for the headache. She has already received a steroid shot from her primary care doctor. Follow-up with orthopedics on Saturday. ER warnings were given.
[2018-09-20] MEDS ORDERED: LIDOCAINE 1% 2 ML VIAL INJ ONE (13:45)
[2018-09-20 14:00] VITALS: O2SAT 98
[2018-09-20 14:24] VITALS: BP 144/76; TEMP 98.3
== END 2018-09-20 14:24 | disposition home or self-care (01) ==
LOC: ER 12:13
DX: J06.9 Acute upper respiratory infection, unspecified (principal)
CPT/HCPCS: 87502; J0696; Q0144

== ENCOUNTER 2018-10-17 06:15 | Day surgery (SDC) | payer MEDICARE, OTHER ==
--- NOTE | 2018-09-23 08:18 | HP ---
CHIEF COMPLAINT: Left shoulder pain. HISTORY OF PRESENT ILLNESS: Ms. Mliler is a 68-year-old female with a history of severe shoulder pain that has been getting progressively worse and has been refractory to conservative measures. Because of her ongoing pain and the refractory nature of it, she has requested operative intervention. After discussing the risks, benefits and alternatives to rotator cuff repair, she has given informed consent. PAST SURGICAL HISTORY: 1. Total knee arthroplasty. 2. Right rotator cuff repair. MEDICATIONS: 1. Dexilant. 2. Pramipexole. 3. Diclofenac. 4. Rosuvastatin. 5. Gabapentin. 6. Cymbalta. ALLERGIES: NO KNOWN DRUG ALLERGIES. CODE STATUS: Full code. IMMUNIZATIONS: Up to date. FAMILY HISTORY: None pertinent to today's complaint. SOCIAL HISTORY: The patient does not drink, smoke or use any illicit drugs. REVIEW OF SYSTEMS: Negative except as indicated in the History of Present Illness. PHYSICAL EXAMINATION: VITAL SIGNS: Blood pressure 136/56. Pulse 90. Height 5'2". Weight 141 pounds. MENTAL STATUS: The patient is awake, alert, and is able to give a good history and participate in the physical. The patient is oriented to person, place and time. SKIN: Normal tone and turgor. MUSCULOSKELETAL: She has severe tenderness to palpation in the subacromial space and mild acromioclavicular joint tenderness. She does maintain full abduction and forward flexion, but has pain at 90 degrees. The extremity is warm and well perfused. Research Project Coordinator strength is 5/5. She has a negative belly press maneuver. She has difficulty with forward flexion and abduction against resistance secondary to pain. IMAGING: MRI was done and shows what appears to be a tear in her rotator cuff. There does not appear to be any acute bony abnormality. ASSESSMENT: 1. Rotator cuff tear. PLAN: The plan at this point is for rotator cuff repair. We have discussed the risks, benefits, and alternatives to that and the patient has given informed consent. #[id number] [facility]
[2018-10-17] MEDS ORDERED: ONDANSETRON INJ 4 MG/2 ML VIAL ONE ×2 (07:00→12:53)
[2018-10-17] MEDS ORDERED: DEXAMETHASONE INJ 10 MG/ML VIAL ONE (07:00)
[2018-10-17] MEDS ORDERED: PROPOFOL 200 MG/20 ML VIAL IV ONE (07:00)
[2018-10-17] MEDS ORDERED: PHENYLEPHRINE INJ 1ML 10 MG/ML VIAL ONE (07:00)
[2018-10-17] MEDS ORDERED: LIDOCAINE 1% 10 ML VIAL INJ ONE (07:00)
[2018-10-17] MEDS ORDERED: SODIUM CHL 0.9% 100ML MINI-BAG 100 ML IVPB ONE (07:25)
[2018-10-17] MEDS ORDERED: LACTATED RINGERS 1,000 ML ONE ×2 (07:26→11:41)
[2018-10-17] MEDS ORDERED: ceFAZolin SODIUM 1 GM VIAL ONE (07:27)
[2018-10-17] MEDS ORDERED: BUPIVACAINE 0.5% 30 ML VIAL INJ ONE (08:43)
[2018-10-17] MEDS ORDERED: BUPIVACAINE LIPOSOME 13.3 MG/ML VIAL INJ ONE (08:43)
[2018-10-17] MEDS ORDERED: VANCOMYCIN HCL INJ 1,000 MG VIAL IVPB ONE (08:44)
[2018-10-17] MEDS ORDERED: ACETAMINOPHEN IV 1000MG 100 ML ONE (09:56)
[2018-10-17] MEDS ORDERED: MIDAZOLAM INJ 5 MG/5 ML VIAL ONE (09:56)
[2018-10-17] MEDS ORDERED: SUCCINYLCHOLINE CHLORIDE 200 MG/10 ML VIAL ONE (09:57)
[2018-10-17] MEDS ORDERED: fentaNYL CITRATE INJ 50 MCG/ML AMP ONE (09:57)
[2018-10-17] MEDS ORDERED: ROCURONIUM BROMIDE 10 MG/ML VIAL ONE (09:57)
[2018-10-17] MEDS ORDERED: BUPIVACAINE 0.25% INJ 30 ML VIAL INJ ONE (10:04)
[2018-10-17] MEDS ORDERED: SODIUM CHLORIDE 0.9% 100ML 100 ML IVPB ONE (10:48)
[2018-10-17] MEDS: ceFAZolin SODIUM 1 GM VIAL ONE ×2 (11:24→11:46)
[2018-10-17] MEDS: VANCOMYCIN HCL INJ 1,000 MG VIAL IVPB ONE ×2 (11:24→11:46)
[2018-10-17] MEDS ORDERED: SUGAMMADEX SODIUM 200 MG/2 ML VIAL IV ONE (11:41)
[2018-10-17 14:28] VITALS: BP 137/62; TEMP 97.6; O2SAT 94
--- NOTE | 2018-10-18 19:33 | OP ---
DATE OF PROCEDURE: 10/17/18 PREOPERATIVE DIAGNOSIS: 1. Left rotator cuff tear. POSTOPERATIVE DIAGNOSIS: 1. Left rotator cuff tear. PROCEDURE: 1. Rotator cuff repair. SURGEON: Yifan Rios M.D. HAND EXPANSION ENVELOPE MAKER: Wayne Valero CST, SA-C ANESTHESIA: General anesthesia. COMPLICATIONS: None. FINDINGS: Tear involving the anterior portion of the supraspinatus extending into just slightly superior portion of the subscapularis. Total measurement was approximately 12 mm. INDICATION FOR PROCEDURE: Ms. Miller has a history of severe shoulder pain. She has had pain that has been refractory to conservative measures and as such has requested operative intervention. After discussing the risks, benefits, and alternatives to that, she has given informed consent for that. DESCRIPTION OF PROCEDURE: The patient was brought to the Operating Room lying in the supine position. General anesthesia was induced and the patient was transitioned into the beach chair position. Following transitioning, the arm was sterilely prepped and draped. An incision was made at the lateral border of the acromion. Dissection was carried down to the deltoid and full thickness skin flaps were developed. Following that, a split was made between the anterior and middle heads of the deltoid. Bursectomy was performed and the rotator cuff was identified. Minimal acromioplasty was performed to improve visualization. Following identification of the cuff and full examination, the aforementioned tear was identified. The tendon end was thoroughly debrided and the bone was abraded to bleeding cancellous bone. Three suture anchors were used to reapproximate the cuff to an anatomic position. Following that, the arm was taken through a range of motion. There was no undue tension and no pending compromise of the repair. The wound was very thoroughly irrigated and closed with reapproximation of the deltoid. The skin was closed with a combination of interrupted and running subcuticular stitches as well as nylon. Sterile dressings were placed. The patient was placed in a sling and transitioned in the supine position, awakened from anesthesia and take to recovery. POSTOPERATIVE INSTRUCTIONS: She is going to followup with us in approximately 2 days. She has been instructed on appropriate range of motion of the wrist and to stay in the sling until followup. Will start therapy at 7 to 10 days for passive range of motion only. #[id number] [facility]
== END 2018-10-17 14:20 | disposition home or self-care (01) ==
LOC: AMB 06:15
PROVIDERS: ATTEND Orthopaedic Surgery
DX: M75.102 Unspecified rotator cuff tear or rupture of left shoulder, not specified as traumatic (principal); K21.9 Gastro-esophageal reflux disease without esophagitis; Z96.659 Presence of unspecified artificial knee joint; Z79.899 Other long term (current) drug therapy
CPT/HCPCS: 01630; 23420; 80307; 81001; 87070; J0690; J1100; J2250; J2405; J3010; J3370; J3490; J7050; J7120

== ENCOUNTER → 2019-03-09 | Outpatient (CLI) | payer MEDICARE, OTHER ==
--- NOTE | 2019-03-10 17:06 | MAM ---
EXAM DESCRIPTION: 3D Screening BILATERAL : Digital Mammography. CLINICAL HISTORY: 69 years Female SCREENING . No complaints or personal history of breast cancer. Remote family history of breast and ovarian cancer. Childbirth. Postmenopausal 20+ years. HRT 5 or more years ago. Prior right breast cyst aspiration biopsy benign. Lifetime risk of developing breast cancer (Tyrer-Cuzick model)(%): 6.6. COMPARISON: Bilateral screening digital breast tomosynthesis 02/17/2018. No prior reports available. TECHNIQUE: Bilateral CC and MLO projection full-field images, digital tomosynthesis mammographic technique. Bilateral digital 2-D full-field MLO images. CAD not available for tomosynthesis or 2-D images. FINDINGS: The breast parenchymal density pattern is: Scattered areas of fibroglandular density. No skin thickening or nipple retraction. No new focal, stellate mass or density, focal asymmetry , and no suspicious microcalcifications bilaterally Stable mammograms compared to prior study. IMPRESSION: BI-RADS CATEGORY: 1 - NEGATIVE FOLLOW UP: Routine digital bilateral screening, one year interval from February 2019 Written communication explaining the findings and follow-up, will be mailed to the patient and referring health care provider. According to the [employer], yearly mammograms are recommended starting at age 40 and continuing as long as a woman is in good health. Any breast change noted on a breast self-exam should be reported promptly to the patient's healthcare provider. Breast MRI is recommended for women with an approximately 20-25% or greater lifetime risk of breast cancer, including women with a strong family history of breast or ovarian cancer and women who have been treated for Hodgkin's disease. A negative mammographic report should not delay tissue diagnosis in patients with significant clinical history or physical findings. Extremely dense breast tissue limits the sensitivity of digital mammography. Electronically signed by: Wayne Kang MD 03/10/2019 5:04 PM CDT
== END ==
LOC: MAMMO 08:09
PROVIDERS: ATTEND Family Medicine
DX: Z12.31 Encounter for screening mammogram for malignant neoplasm of breast (principal)

== ENCOUNTER → 2019-05-31 | Outpatient (CLI) | payer MEDICARE, OTHER | LOC: SL 20:11 | PROVIDERS: ATTEND Family Medicine | DX: G47.10 Hypersomnia, unspecified (principal); R06.83 Snoring; G25.81 Restless legs syndrome; G47.9 Sleep disorder, unspecified; R06.81 Apnea, not elsewhere classified ==

== ENCOUNTER → 2019-07-09 | Outpatient (CLI) | payer MEDICARE, OTHER | LOC: SL 19:24 | PROVIDERS: ATTEND Family Medicine | DX: G47.33 Obstructive sleep apnea (adult) (pediatric) (principal); G47.10 Hypersomnia, unspecified; G47.00 Insomnia, unspecified; G47.9 Sleep disorder, unspecified; G25.81 Restless legs syndrome; R06.83 Snoring ==

== ENCOUNTER → 2019-07-24 | Outpatient (CLI) | payer MEDICARE, OTHER ==
--- NOTE | 2019-07-24 08:50 | MRI ---
MRI left shoulder without contrast INDICATION: Shoulder pain rotator cuff syndrome previous surgery COMPARISON: July 25, 2018 TECHNIQUE: Noncontrast MR imaging left shoulder standard protocol FINDINGS: There is a new/recurrent tear of the supraspinatus especially anteriorly at the rotator interval retracted to the mid humeral head level reference coronal series 401 image 8. Retraction of this portion of the supraspinatus measures 15 mm. Localized bursal fluid and joint fluid. Tendinopathy with interstitial delaminating high-grade partial tear infraspinatus with slight progression from the prior study. Mild glenohumeral osteoarthrosis with labral degeneration. Postsurgical changes from supraspinatus repair/reconstruction. Interstitial tendinosis and scarring subscapularis. Medial subluxation of the proximal long head bicep with thickening scarring and tendinosis. Metallic artifact over the deltoid laterally with morphology suggesting small postsurgical micrometallic fragment correlate with radiographs. Displaced suture anchor would be a consideration but no threads are identified. Mild prior subacromial decompression. Grade 1-2 fatty marbling throughout the rotator cuff muscle bellies fairly symmetric. IMPRESSION: New/retear with retraction supraspinatus status post reconstruction Interstitial delaminating tear extension into the infraspinatus Tendinosis and scarring subscapularis Medial subluxation proximal long head bicep with scarring and tendinosis Localized bursitis Mild muscle atrophy grade 1-2 with diffuse marbling Mild glenohumeral osteoarthrosis Metallic artifact along the lateral deltoid adjacent to the greater tuberosity see above discussion Electronically signed by: Kenney Yang MD 07/24/2019 8:48 AM [facility]
== END ==
LOC: MRI 07:58
PROVIDERS: ATTEND Orthopaedic Surgery
DX: M75.102 Unspecified rotator cuff tear or rupture of left shoulder, not specified as traumatic (principal); S46.112A Strain of muscle, fascia and tendon of long head of biceps, left arm, initial encounter; M75.52 Bursitis of left shoulder; M62.512 Muscle wasting and atrophy, not elsewhere classified, left shoulder; M77.9 Enthesopathy, unspecified

== ENCOUNTER → 2019-09-07 | Outpatient (CLI) | payer MEDICARE, OTHER | LOC: RESP 10:47 | PROVIDERS: ATTEND Family Medicine | DX: R00.2 Palpitations (principal) ==

== ENCOUNTER → 2020-03-07 | Outpatient (CLI) | payer MEDICARE, OTHER ==
--- NOTE | 2020-03-07 19:07 | CT ---
EXAM DESCRIPTION: Chest w/Contrast CLINICAL HISTORY: 70 years Female, MODERATE PERSISTENT ASTHMA, UNCOMPLICATED COMPARISON: Chest radiograph 06/14/2017. TECHNIQUE: CT images through the chest with IV contrast. Multiplanar reformations provided. This exam was performed according to our departmental dose-optimization program, which includes automated exposure control, adjustment of the mA and/or kV according to patient size and/or use of iterative reconstruction technique. CT CHEST FINDINGS: Heart and mediastinum: Normal heart size. No pericardial effusion. Unremarkable esophagus. Mild atherosclerosis. No mediastinal or hilar adenopathy. Thyroid Gland: Normal. Lungs: Lungs are well-expanded. Linear scarring and/or atelectasis in the posterior lower lobes. No suspicious mass or nodule. Airways: Mild bronchiectasis. No airway filling defect or bronchial wall thickening. Pleura: Normal. Musculoskeletal and Soft Tissues: No acute fracture or aggressive appearing osseous lesion. Soft tissues unremarkable. Subphrenic Structures: Large cystic mass with simple fluid attenuation extending from the superior pole of the left kidney measures 7.8 x 6.9 x 7.4 cm. IMPRESSION: 1. No acute abnormality of the chest. 2. No suspicious pulmonary nodule or mass. 3. Large simple appearing fluid attenuating mass extending off the superior pole left kidney, findings favor simple left renal cyst. Electronically signed by: Brandon Mathews MD 03/07/2020 7:06 PM CDT
== END ==
LOC: CT 13:14
PROVIDERS: ATTEND Family Medicine
DX: J45.40 Moderate persistent asthma, uncomplicated (principal); N28.9 Disorder of kidney and ureter, unspecified; M06.9 Rheumatoid arthritis, unspecified

== ENCOUNTER → 2020-04-08 | Outpatient (CLI) | payer MEDICARE, OTHER ==
--- NOTE | 2020-04-08 18:48 | MRI ---
EXAM DESCRIPTION: Cervical Spine: MRI. CLINICAL HISTORY: 70 years Female RADICULOPATHY CERVICAL REGION COMPARISON: None. TECHNIQUE: Multiplanar, high-field MRI, multiple sequences, non-contrast Cervical spine. FINDINGS: C3-C4: Disc desiccation and minimal disc space loss. Trace anterolisthesis. Minimal thickening of the posterior ligaments. Minimal degenerative hypertrophy of the bilateral facet joints. Mild to moderate canal narrowing. Moderate to severe narrowing of the right neural foramen and mild narrowing on the left. C4-C5: Disc desiccation with anterior and posterior bulging. Minimal disc space loss. Grade 1 anterolisthesis 3 mm. Right uncinate spur. Right facet arthrosis with right neural foraminal stenosis. Mild narrowing of the canal and left neural foramen is patent. C5-C6: Moderate disc space loss with disc desiccation. Bilateral disc osteophyte bulge and anterior and posterior disc osteophyte bulge. Posteriorly abutting the ventral cord. Posterior ligament thickening with borderline mild central canal stenosis more to the left of midline. Bilateral uncinate spurs with borderline left neural foraminal stenosis and moderate right neural foraminal stenosis. C6-C7: Disc desiccation minimal to moderate disc space loss with bilateral endplate reactive changes. Anterior and posterior disc osteophyte bulging. Disc osteophyte bulge in the midline posteriorly abutting the cord with thickening of the ligaments resulting in mild central canal stenosis. Right uncinate spur and right neural foraminal stenosis and moderate left neural foraminal narrowing. C7-T1: Minimal disc desiccation with disc space maintained. No bulging. Facet joints and ligaments are unremarkable. Neural foramina are patent. T1-T2: Disc desiccation with posterior midline and left paracentral bulge almost abutting the cord. Mild left paracentral canal narrowing. Facet joints and ligaments are negative. Bilateral neuroforamina are patent. Normal signal in the C2-C3 disc with no bulging. Disc spaces preserved. Canal and neural foramina are patent. Facet joints are unremarkable. Spinal alignment C3-C5 kyphosis. No cord compression or cord edema. Atlantoaxial joint is unremarkable.. Base of the cerebellar tonsils is just above the level of the foramen magnum. Paravertebral soft tissues negative. Vertebral bodies are not compressed at any level. Otherwise normal marrow signal in the remaining vertebral bodies and the posterior elements. IMPRESSION: 1. Multiple levels of spondylosis in the cervical spine, most notable at C4-C5, C5-C6, and C6-C7. The level disc desiccation and bulging. Multilevel posterior flavum ligament thickening and facet joint arthrosis. 2. Multifactorial, borderline mild central canal stenosis at C5-C6 . Advanced spondylosis at C5-C6. Bilateral neural foraminal stenosis. Correlate for bilateral C6 radiculopathy. 3. Right neural foraminal stenosis at C4-C5 with facet arthrosis and uncinate spur. Correlate for right C5 radiculopathy. 4. Multifactorial mild central canal stenosis C6-C7, with right neural foraminal stenosis; correlate for right C7 radiculopathy. Electronically signed by: Wayne Kang MD 04/08/2020 6:47 PM CDT
== END ==
LOC: MRI 11:30
PROVIDERS: ATTEND Psychiatry & Neurology Neurology
DX: G60.3 Idiopathic progressive neuropathy (principal); M47.892 Other spondylosis, cervical region; M50.121 Cervical disc disorder at C4-C5 level with radiculopathy; M50.122 Cervical disc disorder at C5-C6 level with radiculopathy; M50.123 Cervical disc disorder at C6-C7 level with radiculopathy; M48.02 Spinal stenosis, cervical region; M25.78 Osteophyte, vertebrae; M24.28 Disorder of ligament, vertebrae